=== PATIENT | male | born 1960 | race Caucasian/White ===

== ENCOUNTER 2020-07-13 16:48 | Outpatient (CLI) | payer BC, SELFPAY ==
--- NOTE | ~2020-07-13 | MR_ITS ---
EXAMINATION: MR knee LT wo con DATE: 07/13/2020 17:38 INDICATION: Left knee pain TECHNIQUE: Magnetic resonance imaging (MRI) of the left knee was performed without intravenous contra st. Sequences included coronal PD-weighted FSE, coronal PD-weighted FS FSE, sagittal T2-weighted FSE , sagittal PD-weighted FS FSE and axial PD weighted fat saturated FSE. COMPARISON: None. FINDINGS: Medial compartment: Longitudinal horizontal tear at the posterior horn of the medial meniscus. Deep chondral ulceration a nd fissuring along the anterior and central weightbearing medial femoral condyle with mild cortical i rregularity and subarticular edema at the central weightbearing medial femoral condyle. Mild partial thickness cartilage loss along the medial tibial plateau with smooth chondral surface. Lateral compartment: Longitudinal vertical tear extending to the superior articular surface of the anterior body and anter ior horn of the lateral meniscus. There is irregular cortical contour along the central aspect of the lateral tibial plateau with approximately 1-2 mm relatively abrupt step-off suggesting an old healed fracture with mild underlying subarticular edema. There is also partial thickness chondral ulceratio n with irregular chondral surface at the central aspect of the lateral tibial plateau. There is abnor mal flattened contour to the articular cortex along the medial side of the central weightbearing late ral femoral condyle but with smooth intact cortical surface which could be either developmental, sequ chanel of chronic fracture or old osteochondral lesion with collapse or displacement of an osteochondral fragment. There is a nearby 12 x 6 x 7 mm ovoid loose body along the posterior medial margin of the weightbearing lateral femoral condyle which could represent a chronically displaced osteochondral fra gment or degenerative loose body. There is some chondral surface irregularity along the weightbearing lateral femoral condyle. Patellofemoral compartment: Deep chondral ulceration with mild subarticular edema at the inferior aspect of the apical ridge and inferomedial lateral patellar facet. More extensive deep chondral ulceration with underlying mild cor tical irregularity centered at the inferior aspect of the trochlear groove and extending to the adjac ent inferolateral medial trochlea and inferomedial lateral trochlea, the latter also with tiny focus of subarticular cystic change. Ligaments and tendons: The anterior cruciate ligament demonstrates a normal angle relative to Blumensaat line. It appears th ickened with increased intrasubstance signal surrounding intact appearing linear fibers with a celer y stalk appearance. 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 The re is cystic change with prominent surrounding marrow edema underlying the femoral footplate of the p osterolateral bundle of the anterior cruciate ligament. Posterior cruciate ligament is normal. The me dial collateral ligament and fibular collateral ligament complex are normal. Small enthesophyte at th e patellar insertion of the otherwise normal quadriceps tendon. Mild patellar tendinopathy with more prominent enthesopathic in the the distal tendon near its anterior tibial tuberosity insertion. The v isualized medial and lateral hamstring tendons as well as the iliotibial band are normal. Fluid: Small left knee joint effusion. Suprapatellar plical band and mild synovitis at the suprapatellar hossein ch. Additional prominent synovitis at the posterior aspect of the intercondylar notch cephalad insert ion of the posterior cruciate ligament. No loose osteochondral bodies identified. Osseous/other: Bone alignment is normal. Small low signal intensity bone island at the lateral supratrochlear femur. No fracture or pathologic marrow replacing process. IMPRESSION: 1. Mucoid degeneration of the
== END 2020-07-13 16:49 | disposition home or self-care (01) ==
LOC: ANHIMG 16:49
PROVIDERS: PCP Family Medicine; Visit Provider Physician Assistant
DX: S83.282A Other tear of lateral meniscus, current injury, left knee, initial encounter (principal); S83.242A Other tear of medial meniscus, current injury, left knee, initial encounter
CPT/HCPCS: 73721

== ENCOUNTER 2020-07-19 07:28 | Outpatient (CLI) | payer BC, SELFPAY ==
--- NOTE | 2020-07-19 07:50 | ECHO_ITS ---
Patient Info Name: Petr Soni Age: 60 years : 1960 Gender: Male Ht: 70 in Wt: 195 lbs BSA: 2.11 m2 HR: 60 bpm BP: 142 / 73 mmHg Heart Rhythm: Bradycardia Exam Date: 07/19/2020 8:25 AM Exam Location: [facility] Patient Status: Outpatient Admit Date: 07/19/2020 Staff Ordering Physician: Vargas Holland PA-C Lathe Tender: Roopa Ureña RDCS Attending Provider: Vargas Holland PA-C Referring Physician: Amalia AGUILAR; Exam Type: CA echo doppler color flow Study Info Indications - VENTRICULAR PREMATURE DEPOLARIZATION R00.1 - Bradycardia, unspecified Complete two-dimensional, color flow and Doppler transthoracic echocardiogram is performed. Summary 1. Complete two-dimensional, color flow and Doppler transthoracic echocardiogram is performed. 2. Left ventricular chamber dimension is normal. 3. Left ventricular systolic function is normal, estimated at 60-65%. 4. The left ventricular diastolic function is normal. 5. E/e' 9 is minimally elevated. 6. Left atrial chamber dimension is mildly enlarged. 7. There is mild mitral valve regurgitation. 8. There is trace tricuspid valve regurgitation. 9. No pulmonary hypertension, estimated pulmonary arterial systolic pressure is 27 mmHg. Left Ventricle E/e' 9 is minimally elevated. Left ventricular chamber dimension is normal. Left ventricular systolic function is normal, estimated at 60-65%. The left ventricular diastolic function is normal. Right Ventricle Right ventricular chamber dimension is normal. Right ventricular systolic function is normal. Left Atria Left atrial chamber dimension is mildly enlarged. Right Atria Right atrial chamber dimension is normal. Aortic Valve The aortic valve is trileaflet. There is no aortic valve stenosis. There is no aortic valve regurgitation. Pulmonic Valve There is no pulmonic regurgitation. Mitral Valve There is no mitral valve stenosis. There is mild mitral valve regurgitation. Tricuspid Valve There is trace tricuspid valve regurgitation. No pulmonary hypertension, estimated pulmonary arterial systolic pressure is 27 mmHg. Pericardium/Pleural There is no pericardial effusion. Inferior Vena Cava Normal inferior vena cava with >50% collapse upon inspiration consistent with normal right atrial pressure, 5 mmHg. Aorta The aortic root size at the sinus of Valsalva is normal. Left Ventricular Outflow Tract Name Value Normal LVOT 2D LVOT Diameter 2.4 cm LVOT Doppler LVOT Peak Gradient 3 mmHg LVOT Mean Gradient 1 mmHg LVOT VTI 21 cm LVOT VTI/AV VTI Ratio 0.8 LVOT Stroke Volume 94 ml LVOT CO 3.8 l/min LVOT CI 1.8 l/min/m2 Pulmonic Valve Name Value Normal RVOT Doppler --
--- NOTE | 2020-07-19 07:50 | EST_ITS ---
Patient Info Name: Petr Soni Age: 60 years : 1960 Gender: Male Ht: 70 in Wt: 195 lbs BSA: 2.11 m2 Exam Date: 07/19/2020 9:25 AM Exam Location: [facility] Stress Patient Status: Outpatient Admit Date: 07/19/2020 Staff Ordering Physician: Vargas Holland PA-C Attending Provider: Vargas Holland PA-C Exercise Technologist: Hanna Jose CT Exercise Physician: Pankaj Moreno DO Exam Type: CA stress test treadmill Study Info An exercise stress test was performed. Summary 1. 1. Negative Kartik exercise stress test for ischemic ST changes by ECG criteria. 2. 2. Good functional capacity, achieving 9.8 METs of workload. 3. 3. Baseline frequent PVC's and intermittent ventricular bigeminy. 4. 4. Hypertensive response to exercise. 5. 5. Appropriate HR response to exercise. 6. 6. Appropriate HR recovery at 1 minute post exercise. 7. 7. No imaging with stress testing. 8. 8. Patient informed of the above results. Protocol: Kartik Stress ECG Details Stage: REST Duration (min): 8 min : 48 sec Speed (mph): 0.0 Grade (%): 0 HR (bpm): 63 SBP (mmHg): --- DBP (mmHg): --- METS: --- Stage: STAGE 1 Duration (min): 1 min : 0 sec Speed (mph): 1.7 Grade (%): 10 HR (bpm): 95 SBP (mmHg): --- DBP (mmHg): --- METS: --- Stage: STAGE 1 Duration (min): 2 min : 0 sec Speed (mph): 1.7 Grade (%): 10 HR (bpm): 106 SBP (mmHg): --- DBP (mmHg): --- METS: --- Stage: STAGE 1 Duration (min): 3 min : 0 sec Speed (mph): 1.7 Grade (%): 10 HR (bpm): 102 SBP (mmHg): 185 DBP (mmHg): 94 METS: --- Stage: STAGE 2 Duration (min): 1 min : 0 sec Speed (mph): 2.5 Grade (%): 12 HR (bpm): 108 SBP (mmHg): 185 DBP (mmHg): 94 METS: --- Stage: STAGE 2 Duration (min): 2 min : 0 sec Speed (mph): 2.5 Grade (%): 12 HR (bpm): 118 SBP (mmHg): 186 DBP (mmHg): 94 METS: --- Stage: STAGE 2 Duration (min): 3 min : 0 sec Speed (mph): 2.5 Grade (%): 12 HR (bpm): 116 SBP (mmHg): 186 DBP (mmHg): 94 METS: --- Stage: STAGE 3 Duration (min): 1 min : 0 sec Speed (mph): 3.4 Grade (%): 14 HR (bpm): 134 SBP (mmHg): 214 DBP (mmHg): 105 METS: --- Stage: STAGE 3 Duration (min): 1 min : 37 sec Speed (mph): 3.4 Grade (%): 14 HR (bpm): 139 SBP (mmHg): 214 DBP (mmHg): 105 METS: --- Stage: RECOVERY Duration (min): 0 min : 22 sec Speed (mph): 1.5 Grade (%): 0 HR (bpm): 141 SBP (mmHg): 214 DBP (mmHg): 105 METS: --- Stage: RECOVERY Duration (min): 1 min : 22 sec Speed (mph): 0.0 Grade (%): 0 HR (bpm): 105 SBP (mmHg): 214 DBP (mmHg): 105 METS: --- Stage: RECOVERY Duration (min): 2 min : 22 sec Speed (mph): 0.0 Grade (%): 0 HR (bpm): 88 SBP (mmHg): 214 DBP (mmHg): 105 METS: --- Sta
== END 2020-07-19 07:29 | disposition home or self-care (01) ==
PROVIDERS: PCP Family Medicine; Visit Provider Physician Assistant
DX: I49.3 Ventricular premature depolarization (principal); I51.7 Cardiomegaly
CPT/HCPCS: 93017; 93306

== ENCOUNTER 2020-09-14 02:03 | Day surgery (SDC) | payer BC, SELFPAY ==
[2020-09-02 14:33] VITALS: BMI 27.8
[2020-09-14] VITALS (8 sets, daily range): BP systolic 118–144; BP diastolic 60–95; PULSE 43–48; RESP 10–18; TEMP 36.3–36.8; O2SAT 98–100
--- NOTE | 2020-09-14 11:03 | WPDHPUPDATE1 ---
History and Physical Update Update Date/Time: 09/14/20 11:03 History and Physical has been reviewed, including an updated exam of the patient. There are NO changes in the patient's condition. Risks, benefits, and alternatives have been discussed and questions answered. Patient agrees to proceed with procedure.
[2020-09-14] MEDS: LACTATED RINGERS 1,000 ML 30 ML IV CONT (11:35)
[2020-09-14] MEDS: KETOROLAC 15 MG/ML VIAL (*BKC) IV PUSH (11:38)
[2020-09-14] MEDS: ACETAMINOPHEN 500 MG TABLET 1000 MG PO (11:38)
--- NOTE | 2020-09-14 12:24 | P.PNAN_ITS ---
Anes - Initial Pre Proc Eval Procedure: Operation Date: 09/14/20 13:00 Proposed Procedures p Left Knee Arthroscopic Medial and Lateral Meniscectomy - Ken Camilo MD Date/Time: 09/14/20 12:24 Surgeon: Ken Camilo MD Pre Op Diagnosis: left medial and lateral meniscal tear Patient Data Age: 60 Gender: M Height: 1.78 m Weight: 91.2 kg Last Vital Signs Temp 36.8 C 09/14/20 11:18 Pulse 48 L 09/14/20 11:18 Resp 18 09/14/20 11:18 BP 140/60 09/14/20 11:18 Pulse Ox 100 09/14/20 11:18 Allergies Allergy/AdvReac Type Severity Reaction Status Date / Time No Known Allergies Allergy Unknown Verified 09/14/20 11:45 Home Medications Medication Instructions Recorded Confirmed Type naproxen 500 mg tablet 500 mg PO BID #60 tablet 08/26/20 09/14/20 Rx Patient hx anesthesia problems: none Family hx anesthesia problems: none [facility] Past Medical History Medical History (Updated 09/14/20 @ 12:25 by Roel Nguyen MD) Overweight Surgical History Surgical History H/O right knee surgery Family History Family History Other Acute myocardial infarction Social History Social History Tobacco type: cigars Additional smoking assessment comments: MORE THAN 2 YRS Alcohol intake: current Drinks per week: 1 Substance use: never Substance use type: does not use Living arrangements: with family Gender identity (if verbalized by the patient): Male Anes - Eval Final PreProcedure Day of Procedure 09/14/20 12:24 Patient weight: overweight Heart: regular rate and rhythm Airway: Mallampati scale class II Neurological: alert and oriented Last oral intake: >/= 8 hours ASA classification: II Emergent: no Anesthetic plan: proceed Anesthesia type and monitoring: general LMA and standard monitoring Informed Consent: The patient's anesthetic plan and its attendant risks and benefits were discussed with the patient/family/POA. Questions were solicited and answers provided to the satisfaction of the patient/family/POA.
[2020-09-14] MEDS: ceFAZolin 2 GM/D5W 50 ML 2 GM/50 ML BAG IVPB (13:26)
[2020-09-14] MEDS: BUPIVACAINE/EPINEPHRINE 0.5% 10 ML VIAL 20 ML INFILTRATE (14:05)
[2020-09-14] MEDS: fentaNYL CITRATE INJ (*CRX) 100 MCG/2 ML VIAL 25 MCG IV PUSH ×4 (15:01→16:18)
[2020-09-14] MEDS: oxyCODONE HCL (*CRX) 5 MG TAB IR PO (15:52)
--- NOTE | 2020-09-14 17:10 | W.PM.PROC2 ---
Procedure Note - Detailed Date of Procedure 09/14/20 Pre-op Diagnosis left medial and lateral meniscal tear Post-op Diagnosis same Procedure Performed Arthroscopic partial medial and lateral meniscectomy. Surgeon Ken Camilo MD Nurse Practical Analia Allison PA-C Anesthesia general Findings Moderate synovitis. Significant anterior horn degenerative meniscus tear. Subtotal meniscectomy. Moderate degenerative changes primarily in the lateral compartment and patellofemoral compartments. Moderate size posterior horn medial meniscus horizontal cleavage tear treated with debridement. Chondroplasty performed as able. Primarily at the posterior lateral femur. Description of Procedure The patient was identified and the surgical site confirmed and signed in the preoperative holding area. Antibiotics were started per protocol. She was brought to the operative room and transferred to the OR table. A general anesthetic was administered. Supine position with the operative lower extremity position in the leg hyman after placement of a well padded tourniquet. The leg support was lowered and the contralateral limb was supported with a soft bolster. The knee was prepped and draped in the usual sterile fashion. A time-out was performed. The portal sites were marked and infiltrated with 0.5% Marcaine 20 mL. The limb was exsanguinated and the tourniquet inflated to 300 mL Hg. Standard inferolateral and inferomedial portals were established. Inflow was obtained with the saline pump. The camera was introduced. Diagnostic inspection of the joint was accomplished. The anterior horn of the lateral meniscus was severely damaged and torn. This was debrided with the shaver and the probe. Subtotal meniscectomy performed. Moderate arthritic change in the lateral compartment particularly on the tibia. ACL was some degeneration treated with gentle debridement. Medial meniscus posterior horn horizontal cleavage tear treated with partial meniscectomy. Moderate patellofemoral arthritis. Moderate synovitis. The arthroscopic instruments were removed. The tourniquet released and wounds closed with subcutaneous 3-0 Monocryl absorbable suture. Steri strips and a sterile dressing were applied. A light elastic wrap was placed. The patient was extubated and brought to the recovery room in stable condition. Estimated Blood Loss 5 Packing No Complications No immediate complications Condition stable Disposition PACU
== END 2020-09-14 16:20 | disposition home or self-care (01) ==
PROVIDERS: PCP Family Medicine; Visit Provider Orthopaedic Surgery
PROC: (CPT 29870; principal; 2020-09-14 13:00)
DX: M23.322 Other meniscus derangements, posterior horn of medial meniscus, left knee (principal); M23.342 Other meniscus derangements, anterior horn of lateral meniscus, left knee; M17.12 Unilateral primary osteoarthritis, left knee; M65.862 Other synovitis and tenosynovitis, left lower leg; F17.290 Nicotine dependence, other tobacco product, uncomplicated
CPT/HCPCS: 29880; A9270; J0690; J1100; J1885; J2250; J2405; J2704; J3010; J7120

== ENCOUNTER → 2020-12-31 11:14 | Outpatient (CLI) | payer BC, SELFPAY ==
--- NOTE | ~2020-12-31 | US_ITS ---
EXAMINATION: US abdomen limited EXAM DATE: 12/31/2020 11:40 INDICATION: RUQ pain TECHNIQUE: Multiple grayscale and Doppler images of the abdomen right upper quadrant were obtained (b y a technologist who performed the scan) and subsequently reviewed. Comparison is made to prior exami nation from 05/03/2016. FINDINGS: The pancreatic head and body are normal in appearance. The pancreatic tail is not visualized. Mildl y echogenic liver parenchyma, hepatic steatosis. Scattered liver lesions which are anechoic and cons istent with cysts up to about 5 cm. There is no evidence of intrahepatic biliary duct dilation. Por yarelis venous flow was seen in the hepatopedal, normal direction and has normal Doppler waveform. Common bile duct measures 4 mm, which is normal. The gallbladder wall is normal in thickness, with ex pected amount of distention. No sonographic evidence of pericholecystic fluid. Scattered small gall bladder polyps up to 7 mm in size unchanged, consistent with benign histology. No cholelithiasis. Te chnologist performing exam reports patient did not demonstrate sonographic Deleon's sign. Please not e that this sign is less reliable in patients who have received pain medication. IMPRESSION: 1. Gallbladder polyps. 2. Hepatic steatosis. Reviewed, dictated and finalized at location B.
--- NOTE | ~2020-12-31 | XR_ITS ---
XR foot RT min 3V DATE: 12/31/2020 12:01 INDICATION: Right foot pain TECHNIQUE: 4 views COMPARISON: None FINDINGS: There is diffuse osteopenia. There is moderate osteoarthritic change at the first metatarsophalangeal joint. There is mild plantar and posterior calcaneal enthesopathy. No fracture, dislocation, periosteal reaction or bone destruction. IMPRESSION: Mild osteophyte is at first metatarsophalangeal joint Mild plantar and posterior calcaneal enthesopathy Reviewed, dictated and finalized at location A.
== END ==
PROVIDERS: PCP Family Medicine; Visit Provider Physician Assistant
DX: K82.4 Cholesterolosis of gallbladder (principal); K76.0 Fatty (change of) liver, not elsewhere classified; M77.31 Calcaneal spur, right foot; M19.071 Primary osteoarthritis, right ankle and foot
CPT/HCPCS: 73630; 76705

== ENCOUNTER 2021-03-17 00:16 | Day surgery (SDC) | payer BC, SELFPAY ==
--- NOTE | 2021-03-08 15:24 | PM.IMHP ---
H&P: HPI History of Present Illness Date/Time: 03/08/21 15:24 Chief Complaint: Right foot pain Narrative: Details: Right foot pain. Pt states that he first noticed the pain starting about 5-6mo ago, without injury. Pt states that he has experienced increased, constant pain within the past couple of months, again no injury. Pt states that he went to his PCP office on 11/25/20 and was told to take aleve. Pt states that his pain is located on the dorsal aspect of the MTP1 and MTP2 joint. Pt states that he has been taking aleve as needed and wearing tennis shoes with some relief. Location: Right dorsal MTP1 and MTP2 Duration: several months Characteristics of symptom or complaint: pain Aggravating or associated factors: prolonged activity Relieving factors: Rest, wearing tennis shoes, and aleve as needed Review of Systems Constitutional: Constitutional: Denies fever(s) Eyes: Eyes: Denies blurry vision ENT: Reports Normal hearing present Cardiovascular: Cardiovascular: Denies chest pain and Denies dyspnea Respiratory: Respiratory: Denies dyspnea and Denies wheezing Gastrointestinal: Gastrointestinal: Denies abdominal pain Genitourinary: Genitourinary: Denies urinary urgency Musculoskeletal: Musculoskeletal: Reports as per HPI and Denies numbness Integumentary/Breasts: Skin/Breast: Denies changing lesions and Denies sores Neurologic: Reports Normal hearing present, Denies behavioral changes, Denies confusion, Denies numbness and Denies convulsions Psychiatric: Psychiatric: Denies behavioral changes, Denies confusion and Denies hallucinations Endocrine: Endocrine: Denies heat intolerance Hematologic/Lymphatic: Hematologic/Lymphatic: Denies easy bleeding Allergic/Immunologic: Allergic/Immunologic: Denies wheezing PMFSH Past Medical History Medical History Hallux rigidus of right foot Overweight Surgical History Surgical History H/O right knee surgery Family History Family History Other Acute myocardial infarction Social History Social History Smoking status: Current some day smoker Tobacco type: cigars Additional smoking assessment comments: MORE THAN 2 YRS Alcohol intake: current Drinks per week: 1 Substance use: never Substance use type: does not use Gender identity (if verbalized by the patient): Male Meds Home Medications and Allergies Home Medications Medication Instructions Recorded Confirmed Type naproxen 500 mg tablet 500 mg PO BID #60 tablet 11/25/20 01/26/21 Rx Allergies Allergy/AdvReac Type Severity Reaction Status Date / Time hayfever Allergy Unknown unknown Uncoded 01/27/21 14:31 Exam Const: General: healthy appearing; No in distress or confusion Orientation/consciousness: oriented to person, oriented to place, oriented to time and No confusion HENMT: Head: normal to inspection, normocephalic and atraumatic Eyes: Conjunctivae: conjunctivae normal Sclera: sclerae normal Neck: Neck: supple and nontender Resp: Effort & Inspection: normal respiratory effort and no audible wheezes Cardio: Rhythm: regular rhythm Skin: General skin exam: no rashes or lesions noted Neuro: General: oriented to person, oriented to place, oriented to time and No confusion Extrem: Right upper extremity: normal to inspection Left upper extremity: normal to inspection Right lower extremity: ankle Details: normal to inspection, normal ROM ( dorsiflexion 5?, plantar flexion 45?, inversion 20?, eversion 10?) and other ( good stability all directions); no tenderness, no swelling and no ecchymosis and foot Details: abnormal to inspection Details: a deformity Location: of the great toe (Bone spur dorsal) and other (Dorsal prominence 1st metatarsal), tenderness Location:
[2021-03-10 12:50] VITALS: BMI 29.1
--- NOTE | 2021-03-10 12:54 | PC.NURSE ---
Report to the Outpatient Waiting Room, entrance under the green pavilion located off [facility], at time __0900 on date __03/17/21 . OR Time: 1100___. - You and your visitor will be asked a series of questions to screen for COVID 19 for your protection. - A mask is required within the hospital. - Only one visitor is allowed at this time. Patient visitors will be guided where to wait when not with patient. Preoperative COVID Testing Requirements: No COVID Test needed if: (proof is required; if not received patient will have Rapid Test prior to entry) - Patient has received COVID Vaccine at least 14 days prior to procedure date or - Patient has positive COVID test result within last 90 days of surgery date. COVID Test needed if above criteria is not met If not COVID vaccinated a COVID test must be conducted within 72 hours of surgery and patient is asked to isolate self from time of testing until procedure. You will go to the [facility] for your COVID testing. [facility] is located at the corner of [address] [facility]. You will only be called if COVID results are positive and your surgeon may reschedule your elective surgery date. Patients may have clear liquids (water, carbonated beverages, clear teas, apple juice) until 3 hours prior to surgery with a maximum of 20 ounces. - No food from midnight until time of surgery - Infants may have breast milk until 4 hours before surgery, infant formula 6 hours prior to surgery. - Children will be allowed to drink immediately following surgery. If applicable, please bring a bottle or sippy cup to assist with drinking. Juice, water, soda, and popsicles are readily available. For infants on formula, please bring formula the day of surgery. Pacifiers are allowed. Take the following medications with a SIP of water the morning of surgery: ___NONE Medications to discontinue per physician ___NAPROXEN 7 DAYS PRE OP Date to take last dose___03/09/21 Please no make-up, nail greenlandic, hairspray, perfume, deodorant, or body powder the day of surgery. No jewelry (including any body piercings) or valuables the day of surgery, leave them at home. Please take a shower or bath the night before, or the morning of, surgery with an antibacterial soap. Wear comfortable, loose fitting clothing. Children are encouraged to wear pajamas. - Jewelry must be removed prior to entering the operating room. Rings and piercings that are not removed may be cut off. - The hospital will not accept responsibility for valuables. - Please leave all valuables, including medications, at home the day of surgery. If you are going home after surgery, a licensed regional refrigerated cdl truck driver must drive you home. - NO public transportation without another adult. - We recommend that an adult stay with you for 24 hours following discharge. - We also recommend that you do not drive, make important decision, drink alcoholic beverages, or take any drugs that were not prescribed by your health care provider for at least 24 hours after your discharge time. For Pediatric surgeries, we recommend two adults accompany the child home (only one inside the building at this time). Follow any additional instructions given to you from your surgeon. Telephone instructions given to __PATIENT and asked if any additional questions and then verbalized understanding. Patient advised to call surgeon office or pre surgery nurse liaison [phone] if any additional questions.
[2021-03-17] VITALS (10 sets, daily range): BP systolic 121–154; BP diastolic 79–101; PULSE 50–68; RESP 10–16; TEMP 36.3–36.6; O2SAT 97–100
--- NOTE | ~2021-03-17 | XR_ITS ---
EXAMINATION: XR surgery orthopedic DATE: 03/17/2021 12:17 INDICATION: Right hallux cheilectomy TECHNIQUE: 3 fluoroscopic spot images of the right forefoot were obtained during procedure performed by Dr. Celis. Radiologist was not present for the imaging or procedure. The amount of fluoroscopy t shyla used during this procedure was 0.1 minutes. COMPARISON: 01/26/2021 FINDINGS: Postoperative change of right hallux cheilectomy with osteotomy involving portion of the dorsal side of the head of the first metatarsal. There is soft tissue gas at the operative bed with retractor sep arating the overlying soft tissues. Bone alignment is within normal limits. No fracture. Remaining moriah int spaces are normal. IMPRESSION: 1. Postoperative changes right hallux cheilectomy with osteotomy at the dorsal head of the first meta tarsal. Reviewed, dictated and finalized at location A. TIME BABYSITTER IMPRESSION: 1. Postoperative changes right hallux cheilectomy with osteotomy at the dorsal head of the first metatarsal.
--- NOTE | 2021-03-17 06:10 | WPDHPUPDATE1 ---
History and Physical Update Update Date/Time: 03/17/21 06:10 History and Physical has been reviewed, including an updated exam of the patient. There are NO changes in the patient's condition. Risks, benefits, and alternatives have been discussed and questions answered. Patient agrees to proceed with procedure.
[2021-03-17] MEDS: ACETAMINOPHEN 500 MG TABLET 1000 MG PO (09:30)
[2021-03-17] MEDS: LACTATED RINGERS 1,000 ML 30 ML IV CONT ×2 (09:30→12:35)
[2021-03-17] MEDS: KETOROLAC 15 MG/ML VIAL (*BKC) IV PUSH (09:40)
--- NOTE | 2021-03-17 09:47 | WPDANESEPPF ---
Anes - Initial Pre Proc Eval Procedure: Operation Date: 03/17/21 11:00 Proposed Procedures p Right Hallux Cheilectomy - Lowell Celis MD Date/Time: 03/17/21 09:47 Surgeon: Lowell Celis MD Pre Op Diagnosis: right hallux rigidus Patient Data Age: 61 Gender: M Height: 1.78 m Weight: 90.8 kg Last Vital Signs Temp 36.6 C 03/17/21 09:41 Pulse 55 L 03/17/21 09:41 BP 138/92 H 03/17/21 09:41 Pulse Ox 99 03/17/21 09:41 Allergies Allergy/AdvReac Type Severity Reaction Status Date / Time hayfever Allergy Unknown unknown Uncoded 03/17/21 09:10 Home Medications Medication Instructions Recorded Confirmed Type naproxen 500 mg PO PRN PRN 03/10/21 03/17/21 History ondansetron 8 mg PO Q8H PRN #10 tablet 03/17/21 Rx oxycodone-acetaminophen [Percocet] 1 tablet PO Q4H PRN #30 tablet 03/17/21 Rx Patient hx anesthesia problems: none Family hx anesthesia problems: none Results Review: All pre-operative results and documents have been reviewed as part of the pre-operative evaluation. [facility] Past Medical History Medical History Hallux rigidus of right foot Overweight Surgical History Surgical History H/O right knee surgery Family History Family History Other Acute myocardial infarction Social History Social History Smoking status: Current every day smoker Tobacco type: cigars Additional smoking assessment comments: MORE THAN 2 YRS Alcohol intake: current Drinks per week: 1 Substance use: never Substance use type: does not use Living arrangements: with family Gender identity (if verbalized by the patient): Male Spiritual care concerns: No Anes - Eval Final PreProcedure Day of Procedure 03/17/21 09:47 Patient weight: overweight Heart: regular rate and rhythm Lungs: clear to auscultation Airway: Mallampati scale class II Neurological: alert and oriented Last oral intake: >/= 8 hours ASA classification: II Emergent: no Anesthetic plan: proceed Anesthesia type and monitoring: general LMA and standard monitoring Results Review: All pre-operative results and documents have been reviewed as part of the pre-operative evaluation. Informed Consent: The patient's anesthetic plan and its attendant risks and benefits were discussed with the patient/family/POA. Questions were solicited and answers provided to the satisfaction of the patient/family/POA.
--- NOTE | 2021-03-17 10:17 | SUR.PREOP ---
1017- Reviewed pt plat. count with Dr. Nguyen of 91. He stated no need for a repeat count before surgery.
[2021-03-17] MEDS: BUPIVACAINE HCL 0.5% PF 30 ML VIAL INFILTRATE (11:49)
[2021-03-17] MEDS: ceFAZolin 2 GM/D5W 50 ML 2 GM/50 ML BAG IVPB (12:09)
--- NOTE | 2021-03-17 12:50 | W.PM.PROC2 ---
Procedure Note - Detailed Date of Procedure 03/17/21 Pre-op Diagnosis right hallux rigidus Post-op Diagnosis same Procedure Performed RT hallux cheilectomy Surgeon Lowell Celis MD Engine Inspector sales assistant entertainment and media Anesthesia general Indications 61-year-old gentleman with right hallux arthritis and pain. Unrelieved with conservative measures including custom inserts, therapy, medication. Presents for operative treatment. Findings Ulysses brown synovium with extensive synovitis fluid within the metatarsophalangeal joint. Complete loss of articular surface dorsal 50% metatarsal head and the dorsal 30% of the proximal phalanx. Sesamoid articulation with minimal degenerative changes. Description of Procedure Patient identified in the preoperative holding. Informed consent given. Operative extremity marked. Patient received intravenous antibiotics. Patient brought to the operating room where underwent general anesthetic by anesthesia team. Positioned supine on operating room table. Time-out performed confirming the patient, site of the surgery and the plan. Right Foot prepped and draped in the usual sterile surgical fashion using a ChloraPrep skin solution. Foot was exsanguinated with an Esmarch bandage and a calf tourniquet was inflated to 225 mmHg. Longitudinal incision made over the dorsum of the hallux metatarsophalangeal joint with a 15 blade knife. Hemostasis controlled with electrocautery. Dorsal capsulotomy performed and reflected off the medial lateral aspect of the distal 1st metatarsal. Joint was exposed and large dorsal osteophyte as well as erosion of the dorsal portion of the metatarsal articular surface noted. Osteotomes used to resect the exostosis as well as the degenerative portions of the metatarsal head. Adequate resection level checked with image intensification. Due to the appearance of the synovium and the bone a sample of synovium and bone was removed and passed off for pathology. Wound thoroughly irrigated antibiotic solution. Dorsal osteophyte from the proximal phalanx also removed with rongeur. Capsulotomy repaired with 2 O Vicryl interrupted suture. Subcutaneous tissue repaired with 3 0 Monocryl interrupted suture and skin repaired with 4 O nylon running suture. Implants None Estimated Blood Loss 5 Tourniquet Time 40 Drains No Packing No Pathology yes (Synovium and dorsal osteophyte from the right hallux metatarsophalangeal joint) Complications None Condition stable Disposition PACU
== END 2021-03-17 14:36 | disposition home or self-care (01) ==
PROVIDERS: PCP Family Medicine; Visit Provider Orthopaedic Surgery
PROC: (CPT 28289; principal; 2021-03-17 11:00)
DX: M20.21 Hallux rigidus, right foot (principal); M65.871 Other synovitis and tenosynovitis, right ankle and foot; F17.290 Nicotine dependence, other tobacco product, uncomplicated
CPT/HCPCS: 28289; 88304; A9270; J0690; J1885; J2250; J2405; J2704; J3010; J7120

== ENCOUNTER 2021-08-05 10:06 | Outpatient (RCR) | payer BC, SELFPAY | END 2021-11-03 23:59 | disposition home or self-care (01) | LOC: ANHLAB 10:06 | PROVIDERS: PCP Family Medicine; Referring Provider Internal Medicine Hematology & Oncology; Visit Provider Surgery | DX: K40.90 Unilateral inguinal hernia, without obstruction or gangrene, not specified as recurrent (principal) | CPT/HCPCS: 36415; 86850; 86900; 86901 ==

== ENCOUNTER 2021-08-09 00:28 | Day surgery (SDC) | payer BC, SELFPAY ==
[2021-08-04 12:22] VITALS: BMI 29.5
--- NOTE | 2021-08-04 12:38 | PC.NURSE ---
Report to the Outpatient Waiting Room, entrance under the green pavilion located off [facility], at time _0600_ on date _08/09/21_. OR Time: _0730_. - You and your visitor will be asked a series of questions to screen for COVID 19 for your protection. - Only one visitor is allowed at this time. - The patient visitor is requested to leave or wait in car when not with patient. - A mask is required within the hospital. Patients may have clear liquids (water, carbonated beverages, clear teas, apple juice) until 3 hours prior to surgery (043 AM) with a maximum of 20 ounces. - No food from midnight until time of surgery Take the following medications with a SIP of water the morning of surgery: ___NONE___ Medications to discontinue per physician _NAPROXEN PER DR. MALDONADO'S INSTRUCTIONS, Date to take last dose Please no deodorant, or body powder the day of surgery. No jewelry (including any body piercings) or valuables the day of surgery, leave them at home. Please take a shower or bath the night before, or the morning of, surgery with an antibacterial soap. Wear comfortable, loose fitting clothing. - Jewelry must be removed prior to entering the operating room. Rings and piercings that are not removed may be cut off. - The hospital will not accept responsibility for valuables. - Please leave all valuables, including medications, at home the day of surgery. If you are going home after surgery, a licensed pick up driver must drive you home. - NO public transportation without another adult. - We recommend that an adult stay with you for 24 hours following discharge. - We also recommend that you do not drive, make important decision, drink alcoholic beverages, or take any drugs that were not prescribed by your health care provider for at least 24 hours after your discharge time. Follow any additional instructions given to you from your surgeon. HIBICLENS SHOWER AM OF SURGERY If you or anyone in your household have experienced Covid symptoms in the past week, please notify your surgeon or the nurse liaison at the phone number below for possible testing. Telephone instructions given to ____PT and asked if any additional questions and then verbalized understanding. Patient advised to call surgeon office or pre surgery nurse liaison [phone] if any additional questions.
--- NOTE | 2021-08-08 14:50 | P.PNAN_ITS ---
Anes - Initial Pre Proc Eval Procedure: Operation Date: 08/09/21 07:30 Proposed Procedures p Laparoscopic Assisted Left Inguinal Hernia Repair with Mesh Davinci Assisted - Moiz Mendoza DO s Open Ventral Hernia Repair with Mesh - Moiz Mendoza DO Date/Time: 08/08/21 14:50 Surgeon: Moiz Mendoza DO Pre Op Diagnosis: ventral hernia, left ing hernia Patient Data Age: 61 Gender: M Height: 1.78 m Weight: 93.18 kg Allergies Allergy/AdvReac Type Severity Reaction Status Date / Time hayfever Allergy Unknown unknown Uncoded 08/04/21 12:20 Home Medications Medication Instructions Recorded Confirmed Type naproxen 500 mg PO PRN PRN 03/10/21 08/04/21 History cetirizine [Zyrtec] 10 mg PO DAILY PRN 08/04/21 08/04/21 History Results Review: All pre-operative results and documents have been reviewed as part of the pre-operative evaluation. [facility] Past Medical History Medical History Encounter for postoperative care Hallux rigidus of right foot Kidney stones Overweight Surgical History Surgical History H/O left knee surgery H/O right knee surgery Status post right foot surgery Family History Family History Other Acute myocardial infarction Kidney disease Kidney failure Social History Social History Years smoked: 25 Smoking status: Current every day smoker Tobacco type: cigars Additional smoking assessment comments: 1-2 CIGARS DAILY Alcohol intake: current Drinks per week: 1 Substance use: never Substance use type: does not use Gender identity (if verbalized by the patient): Male Spiritual care concerns: No Anes - Eval Final PreProcedure Day of Procedure 08/08/21 14:50 Results Review: All pre-operative results and documents have been reviewed as part of the pre-operative evaluation. Informed Consent: The patient's anesthetic plan and its attendant risks and benefits were discussed with the patient/family/POA. Questions were solicited and answers provided to the satisfaction of the patient/family/POA.
[2021-08-09] VITALS (7 sets, daily range): BP systolic 136–160; BP diastolic 79–96; PULSE 52–61; RESP 9–17; TEMP 36.2–36.6; O2SAT 97–100
[2021-08-09] MEDS: LACTATED RINGERS 1,000 ML 30 ML IV CONT ×3 (06:33→11:00)
[2021-08-09] MEDS: ACETAMINOPHEN 500 MG TABLET 1000 MG PO (06:33)
[2021-08-09] MEDS: KETOROLAC 15 MG/ML VIAL (*BKC) IV PUSH (06:35)
--- NOTE | 2021-08-09 07:15 | WPDHPUPDATE1 ---
History and Physical Update Update Date/Time: 08/09/21 07:15 History and Physical has been reviewed, including an updated exam of the patient. There are NO changes in the patient's condition. Risks, benefits, and alternatives have been discussed and questions answered. Patient agrees to proceed with procedure.
--- NOTE | 2021-08-09 07:16 | PM.IMHP ---
H&P: HPI History of Present Illness Date/Time: 08/09/21 07:16 Chief Complaint: LIH, ventral hernia Narrative: 61 yo man presents for left inguinal hernia repair and ventral hernia repair. He reports no changes since last seen in office. Review of Systems Review of Systems: All systems reviewed & are unremarkable except as noted in HPI and below Constitutional: Constitutional: Denies chills, Denies fever(s), Denies headache(s) and Denies weight loss Eyes: Eyes: Denies change in vision ENT: Denies dizziness, Denies headache(s), Denies neck mass and Denies throat swelling Cardiovascular: Cardiovascular: Denies chest pain, Denies lightheadedness and Denies dyspnea Respiratory: Respiratory: Denies cough, Denies dyspnea and Denies wheezing Gastrointestinal: Gastrointestinal: Denies abdominal pain, Denies change in bowel habits, Denies nausea and Denies vomiting Genitourinary: Genitourinary: Denies hematuria and Denies dysuria Musculoskeletal: Musculoskeletal: Reports as per HPI Integumentary/Breasts: Skin/Breast: Reports as per HPI Neurologic: Denies dizziness and Denies headache(s) Allergic/Immunologic: Allergic/Immunologic: Denies throat swelling and Denies wheezing PMFSH Past Medical History Medical History Encounter for postoperative care Hallux rigidus of right foot Kidney stones Overweight Surgical History Surgical History H/O left knee surgery H/O right knee surgery Status post right foot surgery Family History Family History Other Acute myocardial infarction Kidney disease Kidney failure Social History Social History Years smoked: 25 Smoking status: Current every day smoker Tobacco type: cigars Additional smoking assessment comments: 1-2 CIGARS DAILY Alcohol intake: current Drinks per week: 1 Substance use: never Substance use type: does not use Living arrangements: with family Gender identity (if verbalized by the patient): Male Spiritual care concerns: No Meds Home Medications and Allergies Home Medications Medication Instructions Recorded Confirmed Type naproxen 500 mg tablet 500 mg PO PRN PRN Pain 03/10/21 08/04/21 History cetirizine 10 mg capsule (Zyrtec) 10 mg PO DAILY PRN Congestion 08/04/21 08/09/21 History Allergies Allergy/AdvReac Type Severity Reaction Status Date / Time No Known Allergies Allergy Verified 08/09/21 06:07 Vital Signs Vital Signs - 24 hr 08/09/21 06:37 Temperature 36.6 C Pulse Rate 55 L Respiratory Rate 16 Blood Pressure 146/86 H Pulse Oximetry 98 Oxygen Delivery Room Air Exam Const: General: no acute distress and alert Orientation/consciousness: patient oriented x3 HENMT: Head: normocephalic and atraumatic Ears: hearing grossly normal bilaterally General nose exam: Normal nares present Mouth: Yes Normal oral and palatal mucosa present Eyes: Periorbital: periorbital findings normal Sclera: sclerae normal EOM: EOMs intact bilaterally Neck: Neck: normal visual inspection, no lymphadenopathy and trachea midline Chest: Chest palpation & inspection: normal inspection of the chest Resp: Effort & Inspection: normal respiratory effort Auscultation: clear to auscultation bilaterally Cardio: Jugular venous distension: no JVD Rate: regular rate Rhythm: regular rhythm Heart sounds: S1 normal heart sound present and S2 normal heart sound present Peripheral pulses: Peripheral pulses 2+ throughout GI: Inspection: normal to inspection GI Palp: Yes Soft to palpation, No Tenderness to palpation present (GI), No Guarding due to palpation present (GI), Yes Hernia present (ventral hernia) and No Rebound tenderness present Percussion: Yes normal to percussion Auscultation: normal bowel aleida
--- NOTE | 2021-08-09 07:23 | WPDANESEPPF ---
Anes - Initial Pre Proc Eval Procedure: Operation Date: 08/09/21 07:30 Proposed Procedures p Laparoscopic Assisted Left Inguinal Hernia Repair with Mesh Davinci Assisted - oMiz Mendoza DO s Open Ventral Hernia Repair with Mesh - Moiz Mendoza DO Date/Time: 08/09/21 07:23 Surgeon: Moiz Mendoza DO Pre Op Diagnosis: ventral hernia, left ing hernia Patient Data Age: 61 Gender: M Height: 1.78 m Weight: 91.5 kg Last Vital Signs Temp 98 F 08/09/21 06:37 Pulse 55 L 08/09/21 06:37 Resp 16 08/09/21 06:37 BP 146/86 H 08/09/21 06:37 Pulse Ox 98 08/09/21 06:37 O2 Del Method Room Air 08/09/21 06:37 Allergies Allergy/AdvReac Type Severity Reaction Status Date / Time No Known Allergies Allergy Verified 08/09/21 06:07 Home Medications Medication Instructions Recorded Confirmed Type naproxen 500 mg tablet 500 mg PO PRN PRN Pain 03/10/21 08/04/21 History cetirizine 10 mg capsule (Zyrtec) 10 mg PO DAILY PRN Congestion 08/04/21 08/09/21 History Patient hx anesthesia problems: none Family hx anesthesia problems: none Results Review: All pre-operative results and documents have been reviewed as part of the pre-operative evaluation. [facility] Past Medical History Medical History Encounter for postoperative care Hallux rigidus of right foot Kidney stones Overweight Surgical History Surgical History H/O left knee surgery H/O right knee surgery Status post right foot surgery Family History Family History Other Acute myocardial infarction Kidney disease Kidney failure Social History Social History Years smoked: 25 Smoking status: Current every day smoker Tobacco type: cigars Additional smoking assessment comments: 1-2 CIGARS DAILY Alcohol intake: current Drinks per week: 1 Substance use: never Substance use type: does not use Living arrangements: with family Gender identity (if verbalized by the patient): Male Spiritual care concerns: No Anes - Eval Final PreProcedure Day of Procedure 08/09/21 07:23 Patient weight: overweight Heart: regular rate and rhythm Lungs: clear to auscultation Airway: Mallampati scale class II Neurological: alert and oriented Last oral intake: >/= 8 hours ASA classification: II Emergent: no Anesthetic plan: proceed Anesthesia type and monitoring: general Results Review: All pre-operative results and documents have been reviewed as part of the pre-operative evaluation. Informed Consent: The patient's anesthetic plan and its attendant risks and benefits were discussed with the patient/family/POA. Questions were solicited and answers provided to the satisfaction of the patient/family/POA.
[2021-08-09] MEDS: ceFAZolin 2 GM/D5W 50 ML 2 GM/50 ML BAG IVPB (07:37)
--- NOTE | 2021-08-09 09:56 | W.PM.PROC2 ---
Procedure Note - Detailed Date of Procedure 08/09/21 Pre-op Diagnosis ventral hernia, left inguinal hernia Post-op Diagnosis Same (Direct left inguinal hernia, ventral periumbilical hernia) Procedure Performed 1. Open ventral hernia repair with mesh 2. Laparoscopic left inguinal hernia repair with mesh, da Anton assisted Surgeon Moiz Mendoza, DO Anesthesia General and Local (0.5% bupivacaine with epinephrine) Indications This is a 61-year-old man who presented with an abdominal wall bulge and left groin bulge. He had noticed the bulge near his umbilicus several years ago and this had gradually increased in size. He also noticed a fullness in the left groin region. He was found to have a reducible ventral hernia near his umbilicus as well as a reducible left inguinal hernia. Discussions were made with the patient about treatment options and decision was made to proceed with ventral hernia repair with mesh and robotic assisted laparoscopic left inguinal hernia repair with mesh. Findings Laparoscopic left inguinal hernia repair was performed. Patient was found to have a moderate-sized direct left inguinal hernia. There was no evidence of right inguinal hernia on inspection. A preperitoneal pocket was created on the left side and the hernia sac was reduced far enough posteriorly to allow for mesh placement. A large left Bard 3DMax mid mesh was placed overlying the entire left myopectineal orifice. The ventral hernia measured about 2 cm and was located just on the inferior and right side of the umbilicus. The hernia sac was excised and sent to the lab for pathology. A preperitoneal pocket was then created and an [address] mesh was placed. This was secured around the fascia using 0 Ethibond U-stitch trans fascial sutures. The fascia was then closed over the mesh using 0 Ethibond [id number] sutures. Description of Procedure Procedure as well as risks, benefits, and alternatives were discussed with the patient. Written consent was obtained and placed in chart prior to procedure. Patient was brought back to surgical suite. Hewas placed supine on operating table. Time-out was done to confirm patient and procedure. Hewas then intubated by Anesthesia Department. Hisabdomen was prepped and draped in sterile fashion using chlorhexidine prep. 0.5% bupivacaine with epinephrine was infiltrated at each location for incision. A 2 cm incision was made just superior to the umbilicus using a 15 blade scalpel. Electrocautery was used for hemostasis and dissection around the hernia sac. The hernia sac was excised using electrocautery at the level of fascia. The peritoneum was then entered at this junction at the hernia. The hernia defect measured about 2 cm, therefore 0 Ethibond [id number] sutures were placed in the lateral edges of the fascia to close the fascia around the laparoscopic port. A 12 millimeter trocar was inserted and carbon dioxide insufflation was used to create a pneumoperitoneum. A camera was inserted and the abdominal cavity was inspected. The patient was placed in slight Trendelenburg position. An 8 millimeter incision was made on the right lateral abdomen and an 8 millimeter trocar was inserted under direct visualization. Another 8 millimeter incision was made in the left lateral abdomen and an 8 millimeter trocar was inserted under direct visualization. The robotic arms were brought up to the patient's bedside and secured to the ports. The camera and instruments were inserted. I then moved over to the robotic console and took control of the camera and instruments. After careful inspection of the abdominal cavity, I began scoring the peritoneum along the [] lower quadrant using scissors with electrocautery. The preperitoneal plane was entered and this was carefully dissected caudally along the inferior epigastric vessels. Careful dissection with scissors with electrocautery and blunt dissection was used to continue this
--- NOTE | 2021-08-09 11:06 | SUR.PHASEII ---
1100 - up to recliner. tolerating po well. no c/o pain voiced.
[2021-08-09] MEDS: oxyCODONE HCL (*CRX) 5 MG TAB IR PO (11:54)
== END 2021-08-09 12:30 | disposition home or self-care (01) ==
PROVIDERS: PCP Family Medicine; Visit Provider Surgery
PROC: 8E0Y4CZ Robotic Assisted Procedure of Lower Extremity, Percutaneous Endoscopic Approach (ICD-10-PCS; CPT 49650; principal; 2021-08-09 07:30)
PROC: 0WQF0ZZ Repair Abdominal Wall, Open Approach (ICD-10-PCS; CPT 49560; 2021-08-09 07:30)
DX: K43.9 Ventral hernia without obstruction or gangrene (principal); K40.90 Unilateral inguinal hernia, without obstruction or gangrene, not specified as recurrent; F17.290 Nicotine dependence, other tobacco product, uncomplicated
CPT/HCPCS: 49560; 49568; 49650; S2900; 88302; A9270; C1781; J0360; J0690; J1100; J1170; J1885; J2250; J2405; J2704; J2710; J3010; J7120

== ENCOUNTER 2021-11-29 07:50 | Outpatient (CLI) | payer OTHER, SELFPAY ==
--- NOTE | ~2021-11-29 | US_ITS ---
EXAMINATION: US abdomen complete DATE: 11/29/2021 09:16 INDICATION: Secondary thrombocytopenia TECHNIQUE: Multiple grayscale and Doppler ultrasound images of the abdomen were obtained. COMPARISON: 12/31/2020 FINDINGS: Bowel gas obscures visualization of the pancreas. The visualized portions of the pancreas a re unremarkable. There are multiple cysts of the liver, the largest of which measures up to 4.1 cm. T he liver is otherwise normal with normal echogenicity and echotexture. No surface nodularity. Normal hepatopetal flow in the main portal vein. There are multiple polyps of the gallbladder which measure up to 6 mm. The normal common bile duct measures 7 mm. There was no sonographic Deleon sign. The visu alized portions of the aorta and inferior vena cava are normal. The right kidney measures 10.4 x 6.0 x 6.2 cm. The left kidney measures 11.3 x 5.5 x 5.7 cm. The kidn eys demonstrate normal parenchymal echogenicity. There is no hydronephrosis. The spleen is normal in appearance and measures 11.9 cm. IMPRESSION: 1. Multiple gallbladder polyps measuring up to 6 mm. Reviewed, dictated and finalized at location B.
[2021-11-29 09:33] LABS: Basophils Percent Auto 0.9 % (0.2-1.2); Eosinophils Absolute Auto 0.1 K/mm3 (0-0.3); Eosinophils Percent Auto 2.8 % (0-4.4); Hematocrit 45.4 % (42.0-52.0); Hemoglobin 15.8 g/dL (14.0-18.0); Immature Granulocyte Absolute 0.01 K/mm3 (0.00-0.031); Immature Granulocyte Percent A 0.2 % (0-0.5); Immature Platelet Fraction Pct 2.6 % (0.9-11.2); Lymphocytes Absolute Auto 1.47 K/mm3 (0.9-3.2); Lymphocytes Percent Auto 31.7 % (18.3-44.2); Mean Corpuscular HGB Conc 34.8 g/dl (32-36); Mean Corpuscular Hemoglobin 31.4 pg (26-34); Mean Corpuscular Volume 90.3 fl (80-100); Mean Platelet Volume 9.8 fl (7.4-10.4); Monocytes Absolute Auto 0.5 K/mm3 (0.1-0.6); Monocytes Percent Auto 9.9 % (2.6-8.5); Neutrophils Absolute Auto 2.5 K/mm3 (1.3-6.7); Neutrophils Percent Auto 54.5 % (45.5-73.1); Platelet Count Result 101 k/mm3 (150-375); Red Blood Count 5.03 M/mm3 (4.6-6.20); Red Cell Distribution Width 12.1 % (11.5-14.5); White Blood Count 4.6 K/mm3 (4.5-10.0)
[2021-11-29 09:49] LABS: Alanine Aminotransferase 99 U/L (6-50); Albumin Level 4.4 g/dL (3.5-5.1); Alkaline Phosphatase 55 U/L (38-126); Anion Gap 11 mmol/L (8-16); Aspartate Amino Transferase 62 U/L (17-59); Bilirubin,Total 1.3 mg/dL (0.2-1.3); Blood Urea Nitrogen 17 mg/dL (9-20); Calcium 9.4 mg/dL (8.4-10.2); Carbon Dioxide 24 mmol/L (22-30); Chloride 106 mmol/L (98-107); Estimated Glomerular Filt Rate > 60; Glucose 97 mg/dL (65-110); Potassium 4.2 mmol/L (3.4-5.0); Sodium 141 mmol/L (137-145)
[2021-11-29 10:07] LABS: Iron 256 ug/dL (49-181)
[2021-11-29 10:17] LABS: Percent Iron Saturation 98 % (20-50)
[2021-11-29 10:50] LABS: Folic Acid 6.8 ng/mL (2.76->20)
[2021-11-29 12:46] LABS: Ferritin > 2000.00 ng/mL (11.1-264)
[2021-12-02 11:52] LABS: Methylmalonic Acid 93 nmol/L (87-318)
[2021-12-02 22:56] LABS: Platelet Antibody, Direct IgG NEGATIVE (NEGATIVE)
== END 2021-11-29 07:51 | disposition home or self-care (01) ==
PROVIDERS: PCP Family Medicine; Visit Provider Internal Medicine Hematology & Oncology
DX: D69.59 Other secondary thrombocytopenia (principal); K82.4 Cholesterolosis of gallbladder
CPT/HCPCS: 36415; 76700; 80053; 82607; 82728; 82746; 83540; 83550; 83921; 85025; 85055; 86023

== ENCOUNTER 2022-02-20 12:31 | Outpatient (CLI) | payer OTHER, SELFPAY ==
[2022-02-20 12:59] LABS: Basophils Absolute Auto 0.1 K/mm3 (0.0-0.1); Eosinophils Absolute Auto 0.2 K/mm3 (0-0.3); Eosinophils Percent Auto 3.5 % (0-4.4); Hematocrit 41.7 % (42.0-52.0); Hemoglobin 14.8 g/dL (14.0-18.0); Immature Granulocyte Absolute 0.01 K/mm3 (0.00-0.031); Immature Granulocyte Percent A 0.2 % (0-0.5); Immature Platelet Fraction Pct 3.1 % (0.9-11.2); Lymphocytes Absolute Auto 1.49 K/mm3 (0.9-3.2); Lymphocytes Percent Auto 30.8 % (18.3-44.2); Mean Corpuscular HGB Conc 35.5 g/dl (32-36); Mean Corpuscular Hemoglobin 31.2 pg (26-34); Mean Corpuscular Volume 87.8 fl (80-100); Mean Platelet Volume 9.2 fl (7.4-10.4); Monocytes Absolute Auto 0.4 K/mm3 (0.1-0.6); Monocytes Percent Auto 7.7 % (2.6-8.5); Neutrophils Absolute Auto 2.7 K/mm3 (1.3-6.7); Neutrophils Percent Auto 56.8 % (45.5-73.1); Platelet Count Result 93 k/mm3 (150-375); Red Blood Count 4.75 M/mm3 (4.6-6.20); Red Cell Distribution Width 11.7 % (11.5-14.5); White Blood Count 4.8 K/mm3 (4.5-10.0)
[2022-02-20 13:14] LABS: Iron 260 ug/dL (49-181)
[2022-02-20 13:24] LABS: Percent Iron Saturation 100 % (20-50)
== END 2022-02-20 12:32 | disposition home or self-care (01) ==
LOC: ANHLAB 12:32
PROVIDERS: Visit Provider Internal Medicine Hematology & Oncology
DX: E83.19 Other disorders of iron metabolism (principal)
CPT/HCPCS: 36415; 82728; 83540; 83550; 85025; 85055

== ENCOUNTER 2022-03-21 06:57 | Outpatient (CLI) | payer OTHER, SELFPAY ==
[2022-03-21 07:50] LABS: Eosinophils Absolute Auto 0.1 K/mm3 (0-0.3); Eosinophils Percent Auto 2.6 % (0-4.4); Hematocrit 43.9 % (42.0-52.0); Immature Granulocyte Absolute 0.01 K/mm3 (0.00-0.031); Immature Granulocyte Percent A 0.3 % (0-0.5); Immature Platelet Fraction Pct 3.7 % (0.9-11.2); Lymphocytes Absolute Auto 1.29 K/mm3 (0.9-3.2); Lymphocytes Percent Auto 33.5 % (18.3-44.2); Mean Corpuscular HGB Conc 34.2 g/dl (32-36); Mean Corpuscular Hemoglobin 31.4 pg (26-34); Mean Platelet Volume 9.9 fl (7.4-10.4); Monocytes Absolute Auto 0.3 K/mm3 (0.1-0.6); Monocytes Percent Auto 7.3 % (2.6-8.5); Neutrophils Absolute Auto 2.1 K/mm3 (1.3-6.7); Neutrophils Percent Auto 55.3 % (45.5-73.1); Platelet Count Result 90 k/mm3 (150-375); Red Blood Count 4.77 M/mm3 (4.6-6.20); Red Cell Distribution Width 11.8 % (11.5-14.5); White Blood Count 3.9 K/mm3 (4.5-10.0)
[2022-03-21 09:22] LABS: Iron 236 ug/dL (49-181)
[2022-03-21 09:31] LABS: Percent Iron Saturation 87 % (20-50)
== END 2022-03-21 06:58 | disposition home or self-care (01) ==
LOC: ANHLAB 07:00
PROVIDERS: Visit Provider Internal Medicine Hematology & Oncology
DX: E83.19 Other disorders of iron metabolism (principal)
CPT/HCPCS: 36415; 82728; 83540; 83550; 85025; 85055

== ENCOUNTER 2022-05-03 06:57 | Outpatient (CLI) | payer OTHER, SELFPAY ==
[2022-05-03 07:16] LABS: Basophils Percent Auto 0.7 % (0.2-1.2); Eosinophils Absolute Auto 0.1 K/mm3 (0-0.3); Eosinophils Percent Auto 2.4 % (0-4.4); Hematocrit 43.1 % (42.0-52.0); Immature Granulocyte Absolute 0.01 K/mm3 (0.00-0.031); Immature Granulocyte Percent A 0.2 % (0-0.5); Immature Platelet Fraction Pct 3.1 % (0.9-11.2); Lymphocytes Absolute Auto 1.39 K/mm3 (0.9-3.2); Lymphocytes Percent Auto 32.9 % (18.3-44.2); Mean Corpuscular HGB Conc 34.8 g/dl (32-36); Mean Corpuscular Hemoglobin 30.7 pg (26-34); Mean Corpuscular Volume 88.1 fl (80-100); Mean Platelet Volume 9.5 fl (7.4-10.4); Monocytes Absolute Auto 0.4 K/mm3 (0.1-0.6); Monocytes Percent Auto 8.5 % (2.6-8.5); Neutrophils Absolute Auto 2.3 K/mm3 (1.3-6.7); Neutrophils Percent Auto 55.3 % (45.5-73.1); Platelet Count Result 88 k/mm3 (150-375); Red Blood Count 4.89 M/mm3 (4.6-6.20); Red Cell Distribution Width 11.8 % (11.5-14.5); White Blood Count 4.2 K/mm3 (4.5-10.0)
[2022-05-03 07:28] LABS: Iron 240 ug/dL (49-181)
[2022-05-03 07:38] LABS: Percent Iron Saturation 86 % (20-50)
== END 2022-05-03 06:58 | disposition home or self-care (01) ==
LOC: ANHLAB 06:59
PROVIDERS: PCP Family Medicine; Visit Provider Internal Medicine Hematology & Oncology
DX: E83.19 Other disorders of iron metabolism (principal)
CPT/HCPCS: 36415; 82728; 83540; 83550; 85025; 85055

== ENCOUNTER 2022-05-16 06:39 | Outpatient (CLI) | payer OTHER, SELFPAY ==
[2022-05-16 07:57] LABS: Eosinophils Absolute Auto 0.1 K/mm3 (0-0.3); Eosinophils Percent Auto 3.5 % (0-4.4); Hematocrit 43.1 % (42.0-52.0); Hemoglobin 14.7 g/dL (14.0-18.0); Immature Granulocyte Absolute 0.01 K/mm3 (0.00-0.031); Immature Granulocyte Percent A 0.2 % (0-0.5); Immature Platelet Fraction Pct 3.6 % (0.9-11.2); Lymphocytes Absolute Auto 1.25 K/mm3 (0.9-3.2); Lymphocytes Percent Auto 30.9 % (18.3-44.2); Mean Corpuscular HGB Conc 34.1 g/dl (32-36); Mean Corpuscular Hemoglobin 31.1 pg (26-34); Mean Corpuscular Volume 91.1 fl (80-100); Mean Platelet Volume 9.9 fl (7.4-10.4); Monocytes Absolute Auto 0.4 K/mm3 (0.1-0.6); Monocytes Percent Auto 9.4 % (2.6-8.5); Neutrophils Absolute Auto 2.2 K/mm3 (1.3-6.7); Platelet Count Result 88 k/mm3 (150-375); Red Blood Count 4.73 M/mm3 (4.6-6.20); Red Cell Distribution Width 11.9 % (11.5-14.5)
[2022-05-16 08:03] LABS: Iron 224 ug/dL (49-181)
[2022-05-16 08:05] LABS: Alanine Aminotransferase 82 U/L (6-50); Alkaline Phosphatase 48 U/L (38-126); Anion Gap 3 mmol/L (8-16); Aspartate Amino Transferase 60 U/L (17-59); Blood Urea Nitrogen 20 mg/dL (9-20); Calcium 8.6 mg/dL (8.4-10.2); Carbon Dioxide 30 mmol/L (22-30); Chloride 107 mmol/L (98-107); Cholesterol 203 mg/dL (0-200); Estimated Glomerular Filt Rate > 60; Glucose 96 mg/dL (65-110); HDL Direct 45 mg/dL; Potassium 4.1 mmol/L (3.4-5.0); Sodium 140 mmol/L (137-145); Triglycerides 154 mg/dL (<150)
[2022-05-16 08:13] LABS: Percent Iron Saturation 86 % (20-50)
[2022-05-16 08:16] LABS: LDL Cholesterol Direct 115 mg/dL
[2022-05-16 08:37] LABS: Prostate Specific Antigen 0.6 ng/mL (< OR = 4.0)
[2022-05-16 11:40] LABS: Hemoglobin A1C 4.7 % (<5.7)
== END 2022-05-16 06:40 | disposition home or self-care (01) ==
PROVIDERS: PCP Family Medicine; Referring Provider Internal Medicine Hematology & Oncology; Visit Provider Family Medicine
DX: E83.19 Other disorders of iron metabolism (principal); Z00.00 Encounter for general adult medical examination without abnormal findings; E78.5 Hyperlipidemia, unspecified; R73.01 Impaired fasting glucose; R35.1 Nocturia
CPT/HCPCS: 36415; 80053; 80061; 82728; 83036; 83540; 83550; 84153; 84443; 85025; 85055

== ENCOUNTER 2022-06-22 06:55 | Outpatient (CLI) | payer OTHER, SELFPAY ==
[2022-06-22 07:23] LABS: Hematocrit 42.8 % (42.0-52.0); Hemoglobin 14.7 g/dL (14.0-18.0); Mean Corpuscular HGB Conc 34.3 g/dl (32-36); Mean Corpuscular Hemoglobin 31.6 pg (26-34); Mean Platelet Volume 9.3 fl (7.4-10.4); Platelet Count Result 91 k/mm3 (150-375); Red Blood Count 4.65 M/mm3 (4.6-6.20); White Blood Count 4.3 K/mm3 (4.5-10.0)
[2022-06-22 07:48] LABS: Iron 225 ug/dL (49-181)
[2022-06-22 07:58] LABS: Percent Iron Saturation 87 % (20-50)
== END 2022-06-22 06:56 | disposition home or self-care (01) ==
LOC: ANHLAB 06:58
PROVIDERS: PCP Family Medicine; Visit Provider Internal Medicine Hematology & Oncology
DX: E83.19 Other disorders of iron metabolism (principal)
CPT/HCPCS: 36415; 82728; 83540; 83550; 85027; 85055

== ENCOUNTER 2022-07-07 06:57 | Outpatient (CLI) | payer OTHER, SELFPAY ==
[2022-07-07 07:13] LABS: Basophils Percent Auto 0.9 % (0.2-1.2); Eosinophils Absolute Auto 0.1 K/mm3 (0-0.3); Eosinophils Percent Auto 3.2 % (0-4.4); Hematocrit 43.2 % (42.0-52.0); Hemoglobin 14.8 g/dL (14.0-18.0); Immature Granulocyte Absolute 0.01 K/mm3 (0.00-0.031); Immature Granulocyte Percent A 0.2 % (0-0.5); Immature Platelet Fraction Pct 3.2 % (0.9-11.2); Lymphocytes Absolute Auto 1.32 K/mm3 (0.9-3.2); Lymphocytes Percent Auto 30.3 % (18.3-44.2); Mean Corpuscular HGB Conc 34.3 g/dl (32-36); Mean Corpuscular Hemoglobin 31.1 pg (26-34); Mean Corpuscular Volume 90.8 fl (80-100); Mean Platelet Volume 9.5 fl (7.4-10.4); Monocytes Absolute Auto 0.4 K/mm3 (0.1-0.6); Neutrophils Absolute Auto 2.5 K/mm3 (1.3-6.7); Neutrophils Percent Auto 56.4 % (45.5-73.1); Platelet Count Result 82 k/mm3 (150-375); Red Blood Count 4.76 M/mm3 (4.6-6.20); Red Cell Distribution Width 11.9 % (11.5-14.5); White Blood Count 4.4 K/mm3 (4.5-10.0)
[2022-07-07 07:25] LABS: Iron 231 ug/dL (49-181)
[2022-07-07 07:35] LABS: Percent Iron Saturation 87 % (20-50)
== END 2022-07-07 06:58 | disposition home or self-care (01) ==
LOC: ANHLAB 06:59
PROVIDERS: PCP Family Medicine; Visit Provider Internal Medicine Hematology & Oncology
DX: E83.19 Other disorders of iron metabolism (principal)
CPT/HCPCS: 36415; 82728; 83540; 83550; 85025; 85055

== ENCOUNTER 2022-07-21 06:53 | Outpatient (CLI) | payer OTHER, SELFPAY ==
[2022-07-21 07:17] LABS: Basophils Percent Auto 0.7 % (0.2-1.2); Eosinophils Absolute Auto 0.1 K/mm3 (0-0.3); Eosinophils Percent Auto 2.3 % (0-4.4); Hematocrit 42.6 % (42.0-52.0); Hemoglobin 14.6 g/dL (14.0-18.0); Immature Granulocyte Absolute 0.02 K/mm3 (0.00-0.031); Immature Granulocyte Percent A 0.5 % (0-0.5); Immature Platelet Fraction Pct 3.1 % (0.9-11.2); Lymphocytes Percent Auto 29.8 % (18.3-44.2); Mean Corpuscular HGB Conc 34.3 g/dl (32-36); Mean Corpuscular Volume 90.4 fl (80-100); Mean Platelet Volume 9.6 fl (7.4-10.4); Monocytes Absolute Auto 0.4 K/mm3 (0.1-0.6); Monocytes Percent Auto 10.1 % (2.6-8.5); Neutrophils Absolute Auto 2.5 K/mm3 (1.3-6.7); Neutrophils Percent Auto 56.6 % (45.5-73.1); Platelet Count Result 85 k/mm3 (150-375); Red Blood Count 4.71 M/mm3 (4.6-6.20); Red Cell Distribution Width 11.7 % (11.5-14.5); White Blood Count 4.4 K/mm3 (4.5-10.0)
[2022-07-21 07:56] LABS: Iron 209 ug/dL (49-181)
[2022-07-21 08:05] LABS: Percent Iron Saturation 77 % (20-50)
== END 2022-07-21 06:54 | disposition home or self-care (01) ==
LOC: ANHLAB 06:55
PROVIDERS: PCP Family Medicine; Visit Provider Internal Medicine Hematology & Oncology
DX: E83.19 Other disorders of iron metabolism (principal)
CPT/HCPCS: 36415; 82728; 83540; 83550; 85025; 85055

== ENCOUNTER 2022-09-20 20:09 | Emergency (ER) | payer OTHER, SELFPAY ==
--- NOTE | ~2022-09-20 | XR_ITS ---
XR hand RT min 3V DATE: 09/20/2022 20:38 INDICATION: [place] stuck in hand TECHNIQUE: 3 views COMPARISON: None FINDINGS: Radiopaque fishhook is noted at the first digit. No fracture or dislocation is detected. Polyarticular osteophytosis including triscaphe, first carpometacarpal, all metacarpophalangeal and i nterphalangeal joints. IMPRESSION: Radiopaque foreign body of first digit; no bony injury evident Polyarticular osteoarthritis Reviewed, dictated and finalized at location A.
[2022-09-20 20:24] VITALS: BP 152/95; PULSE 96; RESP 16; TEMP 36.1; O2SAT 98
--- NOTE | 2022-09-20 22:14 | ED.GENADULT ---
HPI - General Adult General Chief complaint: Extremity Injury, Upper Stated complaint: fish hook in right hand Time Seen by Provider: 09/20/22 21:50 History of Present Illness HPI narrative: 62-year-old male presenting with a fishhook injury to the thumb of his right hand. The needle was dirty from fishing. Tetanus is up-to-date. no other injuries. Related Data Home Medications Medication Instructions Recorded Confirmed cetirizine 10 mg tablet (Zyrtec) 10 mg PO DAILY 08/18/22 09/15/22 Allergies Allergy/AdvReac Type Severity Reaction Status Date / Time No Known Allergies Allergy Verified 09/20/22 20:10 [facility] Past Medical History Medical History Encounter for postoperative care Hallux rigidus of right foot Kidney stones Overweight Surgical History Surgical History H/O hernia repair 1. Open ventral hernia repair with mesh 2. Laparoscopic left inguinal hernia repair with mesh, da Anton assisted H/O left knee surgery H/O right knee surgery Status post right foot surgery Family History Family History Other Acute myocardial infarction Kidney disease Kidney failure Social History Social History Years smoked: 25 Smoking status: Never smoker Tobacco type: cigars Additional smoking assessment comments: 1-2 CIGARS DAILY Alcohol intake: current Drinks per week: 1 Substance use: never Substance use type: does not use Living arrangements: with family Occupation/Education: occupation Gender identity (if verbalized by the patient): Male Sexual Orientation (if Verbalized by the Patient): Straight or Heterosexual Spiritual care concerns: No Exam Narrative: APPEARANCE: No apparent distress. Head: atraumatic. EYES: EOMI, NOSE: Atraumatic NECK: Trachea midline RESPIRATORY: No increased rate of breathing CARDIOVASCULAR: RRR, ABDOMINAL: Non-distended MUSCULOSKELETAl: There is a fishhook stuck in the pad of the right thumb. Cap refill intact, extension flexion intact. No other injuries NEURO: Alert. Moving 4/4 extremities SKIN:: Warm, dry. Normal color PSYCHIATRIC: Normal affect Course Vital Signs Vital signs: Vital Signs Temperature 97.0 F L 09/20/22 20:24 Pulse Rate 96 09/20/22 20:24 Respiratory Rate 16 09/20/22 20:24 Blood Pressure 152/95 H 09/20/22 20:24 Pulse Oximetry 98 09/20/22 20:24 Temperature 97.0 F L 09/20/22 20:24 Pulse Rate 96 09/20/22 20:24 Respiratory Rate 16 09/20/22 20:24 Blood Pressure 152/95 H 09/20/22 20:24 Pulse Oximetry 98 09/20/22 20:24 Procedures Foreign Body Removal Foreign Body #1: Foreign Body Removal Date: 09/20/22 Time Out Performed: yes Site: right Description of foreign body: fish hook Confirmed by:: direct visualization Complications: none Post-procedure exam: awake, alert Neurovascular: normal distal pulse and normal capillary fill Foreign Body Removal Narrative: digital block was performed the patient's thumb. The fish hook was advanced through the skin and the dara was clipped off and the hook was was removed without difficulty. Medical Decision Making MDM Narrative Medical decision making narrative: -Presentation: 62-year-old male presenting with thick fishhook injury. -DDX includes but is not limited to: [place] injury, soft tissue injury -Co-morbidities complicating care: hemochromatosis -Social determinants of health: patient works for a [employer], lives with his Carmen. -External Chart Review: None -Hx from independent Sources: at bedside -Independent interpretation of studies: x-ray showed official in the home. -Discussion of Management/Consultants: None -Dx tests consider
[2022-09-20] MEDS: CIPROFLOXACIN 500 MG TAB PO (22:56)
== END 2022-09-20 23:13 | disposition home or self-care (01) ==
PROVIDERS: Emergency Provider Emergency Medicine; PCP Family Medicine
DX: S61.041A Puncture wound with foreign body of right thumb without damage to nail, initial encounter (principal); E66.3 Overweight; Z68.28 Body mass index [BMI] 28.0-28.9, adult; F17.290 Nicotine dependence, other tobacco product, uncomplicated; Z87.442 Personal history of urinary calculi; W26.8XXA Contact with other sharp object(s), not elsewhere classified, initial encounter; W45.8XXA Other foreign body or object entering through skin, initial encounter
CPT/HCPCS: 73130; 99283; A9270

== ENCOUNTER 2022-10-13 06:57 | Outpatient (RCR) | payer OTHER, SELFPAY ==
[2022-08-04 07:27] LABS: Basophils Percent Auto 0.7 % (0.2-1.2); Eosinophils Absolute Auto 0.1 K/mm3 (0-0.3); Eosinophils Percent Auto 2.7 % (0-4.4); Hematocrit 41.8 % (42.0-52.0); Hemoglobin 14.6 g/dL (14.0-18.0); Immature Granulocyte Absolute 0.02 K/mm3 (0.00-0.031); Immature Granulocyte Percent A 0.5 % (0-0.5); Immature Platelet Fraction Pct 2.9 % (0.9-11.2); Lymphocytes Absolute Auto 1.21 K/mm3 (0.9-3.2); Lymphocytes Percent Auto 29.4 % (18.3-44.2); Mean Corpuscular HGB Conc 34.9 g/dl (32-36); Mean Corpuscular Hemoglobin 32.2 pg (26-34); Mean Corpuscular Volume 92.1 fl (80-100); Mean Platelet Volume 9.6 fl (7.4-10.4); Monocytes Absolute Auto 0.4 K/mm3 (0.1-0.6); Monocytes Percent Auto 9.2 % (2.6-8.5); Neutrophils Absolute Auto 2.4 K/mm3 (1.3-6.7); Neutrophils Percent Auto 57.5 % (45.5-73.1); Platelet Count Result 92 k/mm3 (150-375); Red Blood Count 4.54 M/mm3 (4.6-6.20); Red Cell Distribution Width 11.9 % (11.5-14.5); White Blood Count 4.1 K/mm3 (4.5-10.0)
[2022-08-04 07:33] LABS: Alanine Aminotransferase 59 U/L (6-50); Albumin Level 4.1 g/dL (3.5-5.1); Alkaline Phosphatase 43 U/L (38-126); Anion Gap 4 mmol/L (8-16); Aspartate Amino Transferase 38 U/L (17-59); Bilirubin,Total 0.8 mg/dL (0.2-1.3); Blood Urea Nitrogen 23 mg/dL (9-20); Calcium 8.9 mg/dL (8.4-10.2); Carbon Dioxide 28 mmol/L (22-30); Chloride 107 mmol/L (98-107); Estimated Glomerular Filt Rate > 60; Glucose 98 mg/dL (65-110); Potassium 3.9 mmol/L (3.4-5.0); Sodium 139 mmol/L (137-145)
[2022-08-04 07:53] LABS: Iron 247 ug/dL (49-181)
[2022-08-04 08:02] LABS: Percent Iron Saturation 91 % (20-50)
[2022-08-18 08:12] LABS: Basophils Percent Auto 0.9 % (0.2-1.2); Eosinophils Absolute Auto 0.1 K/mm3 (0-0.3); Eosinophils Percent Auto 2.8 % (0-4.4); Hematocrit 42.1 % (42.0-52.0); Hemoglobin 14.3 g/dL (14.0-18.0); Immature Granulocyte Absolute 0.01 K/mm3 (0.00-0.031); Immature Granulocyte Percent A 0.2 % (0-0.5); Immature Platelet Fraction Pct 3.6 % (0.9-11.2); Lymphocytes Absolute Auto 1.34 K/mm3 (0.9-3.2); Mean Corpuscular Hemoglobin 31.6 pg (26-34); Mean Corpuscular Volume 93.1 fl (80-100); Mean Platelet Volume 9.8 fl (7.4-10.4); Monocytes Absolute Auto 0.4 K/mm3 (0.1-0.6); Monocytes Percent Auto 10.2 % (2.6-8.5); Neutrophils Absolute Auto 2.4 K/mm3 (1.3-6.7); Neutrophils Percent Auto 54.9 % (45.5-73.1); Platelet Count Result 93 k/mm3 (150-375); Red Blood Count 4.52 M/mm3 (4.6-6.20); White Blood Count 4.3 K/mm3 (4.5-10.0)
[2022-08-18 08:29] LABS: Alanine Aminotransferase 54 U/L (6-50); Albumin Level 4.2 g/dL (3.5-5.1); Alkaline Phosphatase 46 U/L (38-126); Anion Gap 6 mmol/L (8-16); Aspartate Amino Transferase 35 U/L (17-59); Bilirubin,Total 0.9 mg/dL (0.2-1.3); Blood Urea Nitrogen 22 mg/dL (9-20); Calcium 8.6 mg/dL (8.4-10.2); Carbon Dioxide 27 mmol/L (22-30); Chloride 107 mmol/L (98-107); Estimated Glomerular Filt Rate > 60; Glucose 89 mg/dL (65-110); Potassium 3.9 mmol/L (3.4-5.0); Sodium 140 mmol/L (137-145)
[2022-08-18 09:13] LABS: Iron 257 ug/dL (49-181)
[2022-08-18 09:22] LABS: Percent Iron Saturation 92 % (20-50)
[2022-09-15 07:24] LABS: Basophils Percent Auto 0.8 % (0.2-1.2); Eosinophils Absolute Auto 0.1 K/mm3 (0-0.3); Eosinophils Percent Auto 2.5 % (0-4.4); Hematocrit 41.1 % (42.0-52.0); Hemoglobin 14.4 g/dL (14.0-18.0); Immature Granulocyte Absolute 0.02 K/mm3 (0.00-0.031); Immature Granulocyte Percent A 0.5 % (0-0.5); Immature Platelet Fraction Pct 3.7 % (0.9-11.2); Lymphocytes Absolute Auto 1.21 K/mm3 (0.9-3.2); Lymphocytes Percent Auto 30.3 % (18.3-44.2); Mean Corpuscular Hemoglobin 32.1 pg (26-34); Mean Corpuscular Volume 91.7 fl (80-100); Monocytes Absolute Auto 0.4 K/mm3 (0.1-0.6); Monocytes Percent Auto 10.3 % (2.6-8.5); Neutrophils Absolute Auto 2.2 K/mm3 (1.3-6.7); Neutrophils Percent Auto 55.6 % (45.5-73.1); Platelet Count Result 84 k/mm3 (150-375); Red Blood Count 4.48 M/mm3 (4.6-6.20); Red Cell Distribution Width 11.9 % (11.5-14.5)
[2022-09-15 07:36] LABS: Alanine Aminotransferase 45 U/L (6-50); Albumin Level 4.2 g/dL (3.5-5.1); Alkaline Phosphatase 39 U/L (38-126); Anion Gap 2 mmol/L (8-16); Aspartate Amino Transferase 36 U/L (17-59); Bilirubin,Total 1.1 mg/dL (0.2-1.3); Blood Urea Nitrogen 19 mg/dL (9-20); Calcium 8.6 mg/dL (8.4-10.2); Carbon Dioxide 29 mmol/L (22-30); Chloride 107 mmol/L (98-107); Estimated Glomerular Filt Rate > 60; Glucose 84 mg/dL (65-110); Iron 247 ug/dL (49-181); Sodium 138 mmol/L (137-145)
[2022-09-15 07:45] LABS: Percent Iron Saturation 86 % (20-50)
[2022-09-29 07:32] LABS: Eosinophils Absolute Auto 0.2 K/mm3 (0-0.3); Eosinophils Percent Auto 3.6 % (0-4.4); Hematocrit 43.2 % (42.0-52.0); Hemoglobin 15.2 g/dL (14.0-18.0); Immature Granulocyte Absolute 0.01 K/mm3 (0.00-0.031); Immature Granulocyte Percent A 0.2 % (0-0.5); Immature Platelet Fraction Pct 3.4 % (0.9-11.2); Lymphocytes Absolute Auto 1.13 K/mm3 (0.9-3.2); Lymphocytes Percent Auto 27.2 % (18.3-44.2); Mean Corpuscular HGB Conc 35.2 g/dl (32-36); Mean Corpuscular Hemoglobin 32.2 pg (26-34); Mean Corpuscular Volume 91.5 fl (80-100); Mean Platelet Volume 9.9 fl (7.4-10.4); Monocytes Absolute Auto 0.4 K/mm3 (0.1-0.6); Monocytes Percent Auto 9.1 % (2.6-8.5); Neutrophils Absolute Auto 2.5 K/mm3 (1.3-6.7); Neutrophils Percent Auto 58.9 % (45.5-73.1); Platelet Count Result 87 k/mm3 (150-375); Red Blood Count 4.72 M/mm3 (4.6-6.20); Red Cell Distribution Width 11.9 % (11.5-14.5); White Blood Count 4.2 K/mm3 (4.5-10.0)
[2022-09-29 07:50] LABS: Alanine Aminotransferase 46 U/L (6-50); Albumin Level 4.2 g/dL (3.5-5.1); Alkaline Phosphatase 44 U/L (38-126); Anion Gap 4 mmol/L (8-16); Aspartate Amino Transferase 35 U/L (17-59); Blood Urea Nitrogen 18 mg/dL (9-20); Calcium 8.8 mg/dL (8.4-10.2); Carbon Dioxide 26 mmol/L (22-30); Chloride 109 mmol/L (98-107); Estimated Glomerular Filt Rate > 60; Glucose 96 mg/dL (65-110); Sodium 139 mmol/L (137-145)
[2022-09-29 08:42] LABS: Platelet Estimate Decreased (Adequate)
[2022-09-29 08:43] LABS: Atypical Lymphocytes Present; Schistocytes None Seen (NORMAL)
[2022-09-29 09:36] LABS: Iron 234 ug/dL (49-181); Percent Iron Saturation 80 % (20-50)
[2022-10-13 07:13] LABS: Basophils Percent Auto 0.5 % (0.2-1.2); Eosinophils Absolute Auto 0.1 K/mm3 (0-0.3); Eosinophils Percent Auto 2.7 % (0-4.4); Hematocrit 40.9 % (42.0-52.0); Hemoglobin 14.3 g/dL (14.0-18.0); Immature Granulocyte Absolute 0.02 K/mm3 (0.00-0.031); Immature Granulocyte Percent A 0.5 % (0-0.5); Lymphocytes Absolute Auto 1.17 K/mm3 (0.9-3.2); Lymphocytes Percent Auto 28.5 % (18.3-44.2); Mean Corpuscular Volume 91.5 fl (80-100); Mean Platelet Volume 9.5 fl (7.4-10.4); Monocytes Absolute Auto 0.3 K/mm3 (0.1-0.6); Monocytes Percent Auto 8.3 % (2.6-8.5); Neutrophils Absolute Auto 2.5 K/mm3 (1.3-6.7); Neutrophils Percent Auto 59.5 % (45.5-73.1); Platelet Count Result 85 k/mm3 (150-375); Red Blood Count 4.47 M/mm3 (4.6-6.20); Red Cell Distribution Width 12.1 % (11.5-14.5); White Blood Count 4.1 K/mm3 (4.5-10.0)
[2022-10-13 07:24] LABS: Alanine Aminotransferase 52 U/L (6-50); Albumin Level 4.1 g/dL (3.5-5.1); Alkaline Phosphatase 47 U/L (38-126); Anion Gap 4 mmol/L (8-16); Aspartate Amino Transferase 36 U/L (17-59); Bilirubin,Total 1.2 mg/dL (0.2-1.3); Blood Urea Nitrogen 20 mg/dL (9-20); Calcium 8.5 mg/dL (8.4-10.2); Carbon Dioxide 25 mmol/L (22-30); Chloride 108 mmol/L (98-107); Estimated Glomerular Filt Rate > 60; Glucose 97 mg/dL (65-110); Potassium 3.9 mmol/L (3.4-5.0); Sodium 137 mmol/L (137-145)
[2022-10-13 07:25] LABS: Iron 243 ug/dL (49-181)
[2022-10-13 07:35] LABS: Percent Iron Saturation 83 % (20-50)
== END 2022-11-02 23:59 | disposition home or self-care (01) ==
LOC: ANHLAB 06:57
PROVIDERS: PCP Family Medicine; Visit Provider Internal Medicine Hematology & Oncology
DX: E83.19 Other disorders of iron metabolism (principal); D69.59 Other secondary thrombocytopenia
CPT/HCPCS: 36415; 80053; 82728; 83540; 83550; 85025; 85055

== ENCOUNTER 2023-02-02 06:52 | Outpatient (RCR) | payer OTHER, SELFPAY ==
[2022-11-13 07:44] LABS: Basophils Percent Auto 1.1 % (0.2-1.2); Eosinophils Absolute Auto 0.1 K/mm3 (0-0.3); Eosinophils Percent Auto 2.7 % (0-4.4); Hematocrit 43.3 % (42.0-52.0); Hemoglobin 14.7 g/dL (14.0-18.0); Immature Granulocyte Absolute 0.02 K/mm3 (0.00-0.031); Immature Granulocyte Percent A 0.5 % (0-0.5); Lymphocytes Absolute Auto 1.07 K/mm3 (0.9-3.2); Lymphocytes Percent Auto 28.8 % (18.3-44.2); Mean Corpuscular HGB Conc 33.9 g/dl (32-36); Mean Corpuscular Hemoglobin 31.8 pg (26-34); Mean Corpuscular Volume 93.7 fl (80-100); Mean Platelet Volume 9.7 fl (7.4-10.4); Monocytes Absolute Auto 0.4 K/mm3 (0.1-0.6); Monocytes Percent Auto 10.2 % (2.6-8.5); Neutrophils Absolute Auto 2.1 K/mm3 (1.3-6.7); Neutrophils Percent Auto 56.7 % (45.5-73.1); Platelet Count Result 81 k/mm3 (150-375); Red Blood Count 4.62 M/mm3 (4.6-6.20); White Blood Count 3.7 K/mm3 (4.5-10.0)
[2022-11-13 07:57] LABS: Alanine Aminotransferase 56 U/L (6-50); Albumin Level 4.1 g/dL (3.5-5.1); Alkaline Phosphatase 43 U/L (38-126); Anion Gap 2 mmol/L (8-16); Aspartate Amino Transferase 37 U/L (17-59); Bilirubin,Total 1.3 mg/dL (0.2-1.3); Blood Urea Nitrogen 20 mg/dL (9-20); Calcium 8.7 mg/dL (8.4-10.2); Carbon Dioxide 26 mmol/L (22-30); Chloride 106 mmol/L (98-107); Estimated Glomerular Filt Rate > 60; Glucose 102 mg/dL (65-110); Potassium 4.2 mmol/L (3.4-5.0); Sodium 134 mmol/L (137-145)
[2022-11-13 08:37] LABS: Iron 272 ug/dL (49-181)
[2022-11-13 08:46] LABS: Percent Iron Saturation 89 % (20-50)
[2022-11-27 08:33] LABS: Basophils Percent Auto 0.5 % (0.2-1.2); Eosinophils Absolute Auto 0.1 K/mm3 (0-0.3); Eosinophils Percent Auto 3.4 % (0-4.4); Hematocrit 43.8 % (42.0-52.0); Hemoglobin 14.8 g/dL (14.0-18.0); Immature Granulocyte Absolute 0.02 K/mm3 (0.00-0.031); Immature Granulocyte Percent A 0.5 % (0-0.5); Immature Platelet Fraction Pct 3.1 % (0.9-11.2); Lymphocytes Absolute Auto 1.05 K/mm3 (0.9-3.2); Lymphocytes Percent Auto 27.6 % (18.3-44.2); Mean Corpuscular HGB Conc 33.8 g/dl (32-36); Mean Corpuscular Hemoglobin 31.8 pg (26-34); Mean Platelet Volume 9.9 fl (7.4-10.4); Monocytes Absolute Auto 0.4 K/mm3 (0.1-0.6); Monocytes Percent Auto 9.4 % (2.6-8.5); Neutrophils Absolute Auto 2.2 K/mm3 (1.3-6.7); Neutrophils Percent Auto 58.6 % (45.5-73.1); Platelet Count Result 86 k/mm3 (150-375); Red Blood Count 4.66 M/mm3 (4.6-6.20); Red Cell Distribution Width 11.9 % (11.5-14.5); White Blood Count 3.8 K/mm3 (4.5-10.0)
[2022-11-27 08:54] LABS: Alanine Aminotransferase 44 U/L (6-50); Alkaline Phosphatase 48 U/L (38-126); Anion Gap 5 mmol/L (8-16); Aspartate Amino Transferase 35 U/L (17-59); Bilirubin,Total 0.9 mg/dL (0.2-1.3); Blood Urea Nitrogen 18 mg/dL (9-20); Calcium 8.5 mg/dL (8.4-10.2); Carbon Dioxide 26 mmol/L (22-30); Chloride 106 mmol/L (98-107); Estimated Glomerular Filt Rate > 60; Glucose 94 mg/dL (65-110); Sodium 137 mmol/L (137-145)
[2022-11-27 09:08] LABS: Iron 278 ug/dL (49-181)
[2022-11-27 09:13] LABS: Percent Iron Saturation 93 % (20-50)
[2022-12-11 07:36] LABS: Eosinophils Absolute Auto 0.1 K/mm3 (0-0.3); Eosinophils Percent Auto 2.8 % (0-4.4); Hematocrit 45.8 % (42.0-52.0); Hemoglobin 15.5 g/dL (14.0-18.0); Immature Granulocyte Absolute 0.01 K/mm3 (0.00-0.031); Immature Granulocyte Percent A 0.3 % (0-0.5); Immature Platelet Fraction Pct 2.8 % (0.9-11.2); Lymphocytes Absolute Auto 1.26 K/mm3 (0.9-3.2); Lymphocytes Percent Auto 32.3 % (18.3-44.2); Mean Corpuscular HGB Conc 33.8 g/dl (32-36); Mean Corpuscular Hemoglobin 31.6 pg (26-34); Mean Corpuscular Volume 93.5 fl (80-100); Mean Platelet Volume 9.8 fl (7.4-10.4); Monocytes Absolute Auto 0.4 K/mm3 (0.1-0.6); Monocytes Percent Auto 9.5 % (2.6-8.5); Neutrophils Absolute Auto 2.1 K/mm3 (1.3-6.7); Neutrophils Percent Auto 54.1 % (45.5-73.1); Platelet Count Result 83 k/mm3 (150-375); Red Cell Distribution Width 11.9 % (11.5-14.5); White Blood Count 3.9 K/mm3 (4.5-10.0)
[2022-12-11 07:44] LABS: Alanine Aminotransferase 45 U/L (6-50); Albumin Level 4.4 g/dL (3.5-5.1); Alkaline Phosphatase 49 U/L (38-126); Anion Gap 6 mmol/L (8-16); Aspartate Amino Transferase 35 U/L (17-59); Bilirubin,Total 1.1 mg/dL (0.2-1.3); Blood Urea Nitrogen 20 mg/dL (9-20); Calcium 9.1 mg/dL (8.4-10.2); Carbon Dioxide 24 mmol/L (22-30); Chloride 109 mmol/L (98-107); Estimated Glomerular Filt Rate > 60; Glucose 105 mg/dL (65-110); Sodium 139 mmol/L (137-145)
[2022-12-11 09:37] LABS: Iron 265 ug/dL (49-181)
[2022-12-11 09:50] LABS: Percent Iron Saturation 89 % (20-50)
[2022-12-22 07:34] LABS: Basophils Percent Auto 0.8 % (0.2-1.2); Eosinophils Absolute Auto 0.1 K/mm3 (0-0.3); Eosinophils Percent Auto 2.3 % (0-4.4); Hematocrit 42.3 % (42.0-52.0); Hemoglobin 14.6 g/dL (14.0-18.0); Immature Granulocyte Absolute 0.01 K/mm3 (0.00-0.031); Immature Granulocyte Percent A 0.3 % (0-0.5); Immature Platelet Fraction Pct 3.8 % (0.9-11.2); Lymphocytes Percent Auto 30.8 % (18.3-44.2); Mean Corpuscular HGB Conc 34.5 g/dl (32-36); Mean Corpuscular Hemoglobin 32.2 pg (26-34); Mean Corpuscular Volume 93.2 fl (80-100); Monocytes Absolute Auto 0.4 K/mm3 (0.1-0.6); Monocytes Percent Auto 9.5 % (2.6-8.5); Neutrophils Absolute Auto 2.2 K/mm3 (1.3-6.7); Neutrophils Percent Auto 56.3 % (45.5-73.1); Platelet Count Result 89 k/mm3 (150-375); Red Blood Count 4.54 M/mm3 (4.6-6.20); Red Cell Distribution Width 11.8 % (11.5-14.5); White Blood Count 3.9 K/mm3 (4.5-10.0)
[2022-12-22 07:38] LABS: Alanine Aminotransferase 39 U/L (6-50); Albumin Level 4.2 g/dL (3.5-5.1); Alkaline Phosphatase 45 U/L (38-126); Anion Gap 4 mmol/L (8-16); Aspartate Amino Transferase 32 U/L (17-59); Bilirubin,Total 1.1 mg/dL (0.2-1.3); Blood Urea Nitrogen 24 mg/dL (9-20); Calcium 8.9 mg/dL (8.4-10.2); Carbon Dioxide 26 mmol/L (22-30); Chloride 106 mmol/L (98-107); Estimated Glomerular Filt Rate > 60; Glucose 98 mg/dL (65-110); Potassium 3.9 mmol/L (3.4-5.0); Sodium 136 mmol/L (137-145)
[2022-12-22 08:23] LABS: Iron 267 ug/dL (49-181)
[2022-12-22 08:33] LABS: Percent Iron Saturation 100 % (20-50)
[2023-01-05 07:34] LABS: Basophils Percent Auto 0.8 % (0.2-1.2); Eosinophils Absolute Auto 0.1 K/mm3 (0-0.3); Eosinophils Percent Auto 2.8 % (0-4.4); Hematocrit 42.9 % (42.0-52.0); Hemoglobin 14.8 g/dL (14.0-18.0); Immature Granulocyte Absolute 0.01 K/mm3 (0.00-0.031); Immature Granulocyte Percent A 0.3 % (0-0.5); Immature Platelet Fraction Pct 3.4 % (0.9-11.2); Lymphocytes Percent Auto 30.8 % (18.3-44.2); Mean Corpuscular HGB Conc 34.5 g/dl (32-36); Mean Corpuscular Volume 92.9 fl (80-100); Mean Platelet Volume 9.5 fl (7.4-10.4); Monocytes Absolute Auto 0.3 K/mm3 (0.1-0.6); Monocytes Percent Auto 8.7 % (2.6-8.5); Neutrophils Percent Auto 56.6 % (45.5-73.1); Platelet Count Result 80 k/mm3 (150-375); Red Blood Count 4.62 M/mm3 (4.6-6.20); Red Cell Distribution Width 12.3 % (11.5-14.5); White Blood Count 3.6 K/mm3 (4.5-10.0)
[2023-01-05 08:15] LABS: Alanine Aminotransferase 35 U/L (6-50); Alkaline Phosphatase 45 U/L (38-126); Anion Gap 4 mmol/L (8-16); Aspartate Amino Transferase 31 U/L (17-59); Bilirubin,Total 1.1 mg/dL (0.2-1.3); Blood Urea Nitrogen 17 mg/dL (9-20); Carbon Dioxide 26 mmol/L (22-30); Chloride 107 mmol/L (98-107); Estimated Glomerular Filt Rate > 60; Glucose 99 mg/dL (65-110); Potassium 3.8 mmol/L (3.4-5.0); Sodium 137 mmol/L (137-145)
[2023-01-05 12:04] LABS: Iron 244 ug/dL (49-181)
[2023-01-05 12:20] LABS: Percent Iron Saturation 95 % (20-50)
[2023-01-19 08:04] LABS: Basophils Percent Auto 0.5 % (0.2-1.2); Eosinophils Absolute Auto 0.1 K/mm3 (0-0.3); Eosinophils Percent Auto 3.3 % (0-4.4); Hematocrit 43.6 % (42.0-52.0); Hemoglobin 14.9 g/dL (14.0-18.0); Immature Granulocyte Absolute 0.01 K/mm3 (0.00-0.031); Immature Granulocyte Percent A 0.3 % (0-0.5); Lymphocytes Percent Auto 30.4 % (18.3-44.2); Mean Corpuscular HGB Conc 34.2 g/dl (32-36); Mean Corpuscular Hemoglobin 31.5 pg (26-34); Mean Corpuscular Volume 92.2 fl (80-100); Mean Platelet Volume 9.7 fl (7.4-10.4); Monocytes Absolute Auto 0.3 K/mm3 (0.1-0.6); Monocytes Percent Auto 8.1 % (2.6-8.5); Neutrophils Absolute Auto 2.3 K/mm3 (1.3-6.7); Neutrophils Percent Auto 57.4 % (45.5-73.1); Platelet Count Result 83 k/mm3 (150-375); Red Blood Count 4.73 M/mm3 (4.6-6.20); Red Cell Distribution Width 11.8 % (11.5-14.5)
[2023-01-19 08:17] LABS: Alanine Aminotransferase 38 U/L (6-50); Albumin Level 4.1 g/dL (3.5-5.1); Alkaline Phosphatase 46 U/L (38-126); Anion Gap 3 mmol/L (8-16); Aspartate Amino Transferase 30 U/L (17-59); Bilirubin,Total 0.8 mg/dL (0.2-1.3); Blood Urea Nitrogen 22 mg/dL (9-20); Calcium 9.1 mg/dL (8.4-10.2); Carbon Dioxide 26 mmol/L (22-30); Chloride 107 mmol/L (98-107); Estimated Glomerular Filt Rate > 60; Glucose 96 mg/dL (65-110); Potassium 4.1 mmol/L (3.4-5.0); Sodium 136 mmol/L (137-145)
[2023-01-19 09:59] LABS: Iron 269 ug/dL (49-181)
[2023-01-19 10:12] LABS: Percent Iron Saturation 102 % (20-50)
[2023-02-02 07:37] LABS: Hematocrit 44.3 % (42.0-52.0); Hemoglobin 14.8 g/dL (14.0-18.0); Immature Platelet Fraction Pct 2.8 % (0.9-11.2); Mean Corpuscular HGB Conc 33.4 g/dl (32-36); Mean Corpuscular Volume 92.9 fl (80-100); Mean Platelet Volume 9.6 fl (7.4-10.4); Platelet Count Result 85 k/mm3 (150-375); Red Blood Count 4.77 M/mm3 (4.6-6.20); Red Cell Distribution Width 11.9 % (11.5-14.5); White Blood Count 4.1 K/mm3 (4.5-10.0)
[2023-02-02 07:48] LABS: Alanine Aminotransferase 38 U/L (6-50); Albumin Level 4.1 g/dL (3.5-5.1); Alkaline Phosphatase 49 U/L (38-126); Anion Gap 11 mmol/L (8-16); Aspartate Amino Transferase 32 U/L (17-59); Bilirubin,Total 0.9 mg/dL (0.2-1.3); Blood Urea Nitrogen 24 mg/dL (9-20); Carbon Dioxide 22 mmol/L (22-30); Chloride 105 mmol/L (98-107); Estimated Glomerular Filt Rate > 60; Glucose 156 mg/dL (65-110); Potassium 3.8 mmol/L (3.4-5.0); Sodium 138 mmol/L (137-145)
[2023-02-02 08:01] LABS: Iron 259 ug/dL (49-181)
[2023-02-02 08:10] LABS: Percent Iron Saturation 98 % (20-50)
[2023-02-02 09:29] LABS: Band Neutrophils Percent 19 % (0-6); Eosinophils Absolute Manual 0.12 K/mm3 (0.02-0.5); Eosinophils Percent Manual 3 % (0-4); Lymphocytes Absolute Manual 1.18 K/mm3 (1.1-4.5); Lymphocytes Percent Manual 29 % (18-44); Monocytes Absolute Manual 0.28 K/mm3 (0.1-0.90); Monocytes Percent Manual 7 % (3-9); Neutrophils Percent Manual 42 % (46-73); Platelet Estimate Decreased (Adequate); Total Cells Counted 100
[2023-02-02 09:30] LABS: Ovalocytes 1+ (NORMAL); Poikilocytosis 1+ (NORMAL); Schistocytes None Seen (NORMAL)
== END 2023-02-11 23:59 | disposition home or self-care (01) ==
LOC: ANHLAB 06:52
PROVIDERS: PCP Family Medicine; Visit Provider Internal Medicine Hematology & Oncology
DX: E83.19 Other disorders of iron metabolism (principal); D69.59 Other secondary thrombocytopenia
CPT/HCPCS: 36415; 80053; 82728; 83540; 83550; 85025; 85055

== ENCOUNTER 2023-05-04 06:58 | Outpatient (RCR) | payer OTHER, SELFPAY ==
[2023-02-16 07:17] LABS: Basophils Percent Auto 0.6 % (0.2-1.2); Eosinophils Absolute Auto 0.2 K/mm3 (0-0.3); Eosinophils Percent Auto 4.3 % (0-4.4); Hematocrit 44.3 % (42.0-52.0); Hemoglobin 15.2 g/dL (14.0-18.0); Immature Granulocyte Absolute 0.02 K/mm3 (0.00-0.031); Immature Granulocyte Percent A 0.4 % (0-0.5); Immature Platelet Fraction Pct 3.1 % (0.9-11.2); Lymphocytes Absolute Auto 1.31 K/mm3 (0.9-3.2); Mean Corpuscular HGB Conc 34.3 g/dl (32-36); Mean Corpuscular Hemoglobin 31.5 pg (26-34); Mean Corpuscular Volume 91.7 fl (80-100); Mean Platelet Volume 9.3 fl (7.4-10.4); Monocytes Absolute Auto 0.4 K/mm3 (0.1-0.6); Monocytes Percent Auto 9.1 % (2.6-8.5); Neutrophils Absolute Auto 2.8 K/mm3 (1.3-6.7); Neutrophils Percent Auto 58.6 % (45.5-73.1); Platelet Count Result 85 k/mm3 (150-375); Red Blood Count 4.83 M/mm3 (4.6-6.20); Red Cell Distribution Width 11.8 % (11.5-14.5); White Blood Count 4.9 K/mm3 (4.5-10.0)
[2023-02-16 07:37] LABS: Alanine Aminotransferase 41 U/L (6-50); Albumin Level 4.2 g/dL (3.5-5.1); Alkaline Phosphatase 54 U/L (38-126); Anion Gap 6 mmol/L (8-16); Aspartate Amino Transferase 30 U/L (17-59); Bilirubin,Total 1.2 mg/dL (0.2-1.3); Blood Urea Nitrogen 19 mg/dL (9-20); Carbon Dioxide 24 mmol/L (22-30); Chloride 107 mmol/L (98-107); Estimated Glomerular Filt Rate > 60; Glucose 97 mg/dL (65-110); Sodium 137 mmol/L (137-145)
[2023-02-16 08:09] LABS: Iron 267 ug/dL (49-181)
[2023-02-16 08:35] LABS: Percent Iron Saturation 99 % (20-50)
[2023-03-20 07:37] LABS: Basophils Percent Auto 0.8 % (0.2-1.2); Eosinophils Absolute Auto 0.2 K/mm3 (0-0.3); Eosinophils Percent Auto 3.8 % (0-4.4); Immature Granulocyte Absolute 0.01 K/mm3 (0.00-0.031); Immature Granulocyte Percent A 0.3 % (0-0.5); Immature Platelet Fraction Pct 2.8 % (0.9-11.2); Lymphocytes Absolute Auto 1.24 K/mm3 (0.9-3.2); Lymphocytes Percent Auto 31.8 % (18.3-44.2); Mean Corpuscular HGB Conc 34.1 g/dl (32-36); Mean Corpuscular Hemoglobin 31.3 pg (26-34); Mean Corpuscular Volume 91.9 fl (80-100); Mean Platelet Volume 9.8 fl (7.4-10.4); Monocytes Absolute Auto 0.3 K/mm3 (0.1-0.6); Monocytes Percent Auto 8.7 % (2.6-8.5); Neutrophils Absolute Auto 2.1 K/mm3 (1.3-6.7); Neutrophils Percent Auto 54.6 % (45.5-73.1); Platelet Count Result 71 k/mm3 (150-375); Red Blood Count 4.79 M/mm3 (4.6-6.20); Red Cell Distribution Width 11.9 % (11.5-14.5); White Blood Count 3.9 K/mm3 (4.5-10.0)
[2023-03-20 07:49] LABS: Alanine Aminotransferase 41 U/L (6-50); Albumin Level 4.1 g/dL (3.5-5.1); Alkaline Phosphatase 49 U/L (38-126); Anion Gap 5 mmol/L (8-16); Aspartate Amino Transferase 32 U/L (17-59); Bilirubin,Total 1.3 mg/dL (0.2-1.3); Blood Urea Nitrogen 23 mg/dL (9-20); Carbon Dioxide 24 mmol/L (22-30); Chloride 109 mmol/L (98-107); Estimated Glomerular Filt Rate > 60; Glucose 101 mg/dL (65-110); Potassium 3.8 mmol/L (3.4-5.0); Sodium 138 mmol/L (137-145)
[2023-03-20 08:36] LABS: Iron 240 ug/dL (49-181)
[2023-03-20 08:45] LABS: Percent Iron Saturation 92 % (20-50)
[2023-04-06 07:39] LABS: Alanine Aminotransferase 40 U/L (6-50); Albumin Level 4.2 g/dL (3.5-5.1); Alkaline Phosphatase 46 U/L (38-126); Anion Gap 8 mmol/L (8-16); Aspartate Amino Transferase 34 U/L (17-59); Bilirubin,Total 1.4 mg/dL (0.2-1.3); Blood Urea Nitrogen 21 mg/dL (9-20); Calcium 9.4 mg/dL (8.4-10.2); Carbon Dioxide 26 mmol/L (22-30); Chloride 105 mmol/L (98-107); Estimated Glomerular Filt Rate > 60; Glucose 87 mg/dL (65-110); Potassium 4.2 mmol/L (3.4-5.0); Sodium 139 mmol/L (137-145)
[2023-04-06 07:43] LABS: Basophils Percent Auto 0.7 % (0.2-1.2); Eosinophils Absolute Auto 0.2 K/mm3 (0-0.3); Eosinophils Percent Auto 3.5 % (0-4.4); Hematocrit 46.4 % (42.0-52.0); Hemoglobin 16.1 g/dL (14.0-18.0); Immature Granulocyte Absolute 0.01 K/mm3 (0.00-0.031); Immature Granulocyte Percent A 0.2 % (0-0.5); Immature Platelet Fraction Pct 3.5 % (0.9-11.2); Lymphocytes Absolute Auto 1.14 K/mm3 (0.9-3.2); Lymphocytes Percent Auto 26.8 % (18.3-44.2); Mean Corpuscular HGB Conc 34.7 g/dl (32-36); Mean Corpuscular Hemoglobin 31.8 pg (26-34); Mean Corpuscular Volume 91.5 fl (80-100); Mean Platelet Volume 9.5 fl (7.4-10.4); Monocytes Absolute Auto 0.4 K/mm3 (0.1-0.6); Monocytes Percent Auto 9.6 % (2.6-8.5); Neutrophils Absolute Auto 2.5 K/mm3 (1.3-6.7); Neutrophils Percent Auto 59.2 % (45.5-73.1); Platelet Count Result 88 k/mm3 (150-375); Red Blood Count 5.07 M/mm3 (4.6-6.20); Red Cell Distribution Width 11.9 % (11.5-14.5); White Blood Count 4.3 K/mm3 (4.5-10.0)
[2023-04-06 08:54] LABS: Iron 266 ug/dL (49-181)
[2023-04-06 09:03] LABS: Percent Iron Saturation 101 % (20-50)
[2023-04-20 07:54] LABS: Alanine Aminotransferase 39 U/L (6-50); Albumin Level 4.1 g/dL (3.5-5.1); Alkaline Phosphatase 43 U/L (38-126); Anion Gap 5 mmol/L (8-16); Aspartate Amino Transferase 30 U/L (17-59); Basophils Percent Auto 0.6 % (0.2-1.2); Bilirubin,Total 1.2 mg/dL (0.2-1.3); Blood Urea Nitrogen 16 mg/dL (9-20); Carbon Dioxide 25 mmol/L (22-30); Chloride 108 mmol/L (98-107); Eosinophils Absolute Auto 0.2 K/mm3 (0-0.3); Eosinophils Percent Auto 4.1 % (0-4.4); Estimated Glomerular Filt Rate > 60; Glucose 94 mg/dL (65-110); Hematocrit 41.2 % (42.0-52.0); Hemoglobin 14.1 g/dL (14.0-18.0); Immature Granulocyte Absolute 0.01 K/mm3 (0.00-0.031); Immature Granulocyte Percent A 0.3 % (0-0.5); Immature Platelet Fraction Pct 3.8 % (0.9-11.2); Lymphocytes Absolute Auto 1.05 K/mm3 (0.9-3.2); Lymphocytes Percent Auto 28.9 % (18.3-44.2); Mean Corpuscular HGB Conc 34.2 g/dl (32-36); Mean Corpuscular Hemoglobin 31.2 pg (26-34); Mean Corpuscular Volume 91.2 fl (80-100); Mean Platelet Volume 9.6 fl (7.4-10.4); Monocytes Absolute Auto 0.3 K/mm3 (0.1-0.6); Monocytes Percent Auto 8.8 % (2.6-8.5); Neutrophils Absolute Auto 2.1 K/mm3 (1.3-6.7); Neutrophils Percent Auto 57.3 % (45.5-73.1); Platelet Count Result 81 k/mm3 (150-375); Potassium 4.2 mmol/L (3.4-5.0); Red Blood Count 4.52 M/mm3 (4.6-6.20); Red Cell Distribution Width 12.1 % (11.5-14.5); Sodium 138 mmol/L (137-145); White Blood Count 3.6 K/mm3 (4.5-10.0)
[2023-04-20 08:37] LABS: Iron 243 ug/dL (49-181)
[2023-04-20 08:47] LABS: Percent Iron Saturation 94 % (20-50)
[2023-05-04 07:43] LABS: Alanine Aminotransferase 46 U/L (6-50); Albumin Level 4.2 g/dL (3.5-5.1); Alkaline Phosphatase 48 U/L (38-126); Anion Gap 5 mmol/L (8-16); Aspartate Amino Transferase 39 U/L (17-59); Blood Urea Nitrogen 18 mg/dL (9-20); Carbon Dioxide 26 mmol/L (22-30); Chloride 107 mmol/L (98-107); Estimated Glomerular Filt Rate > 60; Glucose 98 mg/dL (65-110); Potassium 4.2 mmol/L (3.4-5.0); Sodium 138 mmol/L (137-145)
[2023-05-04 07:52] LABS: Eosinophils Absolute Auto 0.2 K/mm3 (0-0.3); Eosinophils Percent Auto 3.6 % (0-4.4); Hematocrit 45.2 % (42.0-52.0); Hemoglobin 15.6 g/dL (14.0-18.0); Immature Granulocyte Absolute 0.02 K/mm3 (0.00-0.031); Immature Granulocyte Percent A 0.5 % (0-0.5); Immature Platelet Fraction Pct 2.7 % (0.9-11.2); Lymphocytes Absolute Auto 1.38 K/mm3 (0.9-3.2); Lymphocytes Percent Auto 33.5 % (18.3-44.2); Mean Corpuscular HGB Conc 34.5 g/dl (32-36); Mean Corpuscular Hemoglobin 31.7 pg (26-34); Mean Corpuscular Volume 91.9 fl (80-100); Mean Platelet Volume 9.5 fl (7.4-10.4); Monocytes Absolute Auto 0.4 K/mm3 (0.1-0.6); Monocytes Percent Auto 9.2 % (2.6-8.5); Neutrophils Absolute Auto 2.2 K/mm3 (1.3-6.7); Neutrophils Percent Auto 52.2 % (45.5-73.1); Platelet Count Result 76 k/mm3 (150-375); Red Blood Count 4.92 M/mm3 (4.6-6.20); Red Cell Distribution Width 12.3 % (11.5-14.5); White Blood Count 4.1 K/mm3 (4.5-10.0)
[2023-05-04 08:18] LABS: Iron 257 ug/dL (49-181)
[2023-05-04 08:28] LABS: Percent Iron Saturation 98 % (20-50)
== END 2023-05-17 23:59 | disposition home or self-care (01) ==
LOC: ANHLAB 06:58
PROVIDERS: PCP Family Medicine; Visit Provider Internal Medicine Hematology & Oncology
DX: E83.19 Other disorders of iron metabolism (principal); D69.59 Other secondary thrombocytopenia
CPT/HCPCS: 36415; 80053; 82728; 83540; 83550; 85025; 85055

== ENCOUNTER 2023-07-06 06:57 | Outpatient (RCR) | payer OTHER, SELFPAY ==
[2023-07-06 07:35] LABS: Basophils Percent Auto 0.7 % (0.2-1.2); Eosinophils Absolute Auto 0.2 K/mm3 (0-0.3); Eosinophils Percent Auto 3.7 % (0-4.4); Hematocrit 44.1 % (42.0-52.0); Hemoglobin 15.2 g/dL (14.0-18.0); Immature Granulocyte Absolute 0.01 K/mm3 (0.00-0.031); Immature Granulocyte Percent A 0.2 % (0-0.5); Immature Platelet Fraction Pct 3.5 % (0.9-11.2); Lymphocytes Absolute Auto 1.34 K/mm3 (0.9-3.2); Mean Corpuscular HGB Conc 34.5 g/dl (32-36); Mean Corpuscular Hemoglobin 32.1 pg (26-34); Mean Platelet Volume 9.6 fl (7.4-10.4); Monocytes Absolute Auto 0.4 K/mm3 (0.1-0.6); Monocytes Percent Auto 10.6 % (2.6-8.5); Neutrophils Absolute Auto 2.1 K/mm3 (1.3-6.7); Neutrophils Percent Auto 51.8 % (45.5-73.1); Platelet Count Result 80 k/mm3 (150-375); Red Blood Count 4.74 M/mm3 (4.6-6.20); Red Cell Distribution Width 11.9 % (11.5-14.5); White Blood Count 4.1 K/mm3 (4.5-10.0)
[2023-07-06 07:45] LABS: Alanine Aminotransferase 21 U/L (6-50); Albumin Level 4.5 g/dL (3.5-5.1); Alkaline Phosphatase 44 U/L (38-126); Anion Gap 7 mmol/L (4-12); Aspartate Amino Transferase 25 U/L (17-59); Bilirubin,Total 1.6 mg/dL (0.2-1.3); Blood Urea Nitrogen 17 mg/dL (9-20); Calcium 9.3 mg/dL (8.4-10.2); Carbon Dioxide 23 mmol/L (22-30); Chloride 109 mmol/L (98-107); Estimated Glomerular Filt Rate > 60; Glucose 107 mg/dL (65-110); Iron 281 ug/dL (49-181); Potassium 3.9 mmol/L (3.4-5.0); Sodium 139 mmol/L (137-145)
[2023-07-06 08:00] LABS: Percent Iron Saturation 97 % (20-50)
== END 2023-10-04 23:59 | disposition home or self-care (01) ==
LOC: ANHLAB 06:57
PROVIDERS: PCP Family Medicine; Visit Provider Internal Medicine Hematology & Oncology
DX: E83.19 Other disorders of iron metabolism (principal); D69.59 Other secondary thrombocytopenia
CPT/HCPCS: 36415; 80053; 82728; 83540; 83550; 85025; 85055

== ENCOUNTER 2023-09-25 14:28 | Outpatient (RCR) | payer SELFPAY ==
[2023-09-25 15:00] VITALS: BMI 29.0
[2023-09-25 15:01] VITALS: BMI 29.0
== END 2023-12-17 10:24 | disposition home or self-care (01) ==
LOC: ANHDMC 14:28
PROVIDERS: PCP Family Medicine; Visit Provider Internal Medicine Hematology & Oncology
DX: D69.59 Other secondary thrombocytopenia (principal); Z71.89 Other specified counseling
CPT/HCPCS: 97802